=== PATIENT | male | born 1940 | race Caucasian/White ===

== ENCOUNTER → 2018-06-01 | Outpatient (CLI) | payer MEDICARE, OTHER ==
[2018-06-01 10:07] LABS: HCT 38.9 % (39.0-53.0); HGB 12.8 gm/dL (13.0-17.5); MCH 31.1 pg (25.0-35.0); MCV 94.3 fL (80.0-100.0); Mean Platelet Volume 7.1; Platelet Count 228 k/uL (150-450); RBC 4.13 m/uL (4.30-5.90); RDW 13.6 % (11.5-15.5); WBC 5.3 k/uL (3.8-10.6)
[2018-06-01 10:18] LABS: Partial Thromboplastin Time 23.5 sec (22.0-30.0); Prothrombin Time 9.9 sec (9.0-12.0)
[2018-06-01 10:20] LABS: Albumin 4.3 g/dL (3.5-5.0); Calcium 9.5 mg/dL (8.4-10.2); Magnesium 2.1 mg/dL (1.6-2.3); Potassium 4.9 mmol/L (3.5-5.1); Total Bilirubin 0.5 mg/dL (0.2-1.3); Total Protein 7.1 g/dL (6.3-8.2)
[2018-06-01 10:37] LABS: Appearance,Urine Clear (Clear); Bilirubin,Urine Negative (Negative); Blood,Urine Negative (Negative); Color,Urine Yellow; Glucose,Urine (UA) Negative (Negative); Ketones,Urine Negative (Negative); Leukocyte Esterase,Urine Negative (Negative); Nitrite,Urine Negative (Negative); PH, Urine 5.5 (5.0-8.0); Protein,Urine Trace (Negative); Specific Gravity,Urine 1.022 (1.001-1.035); Urobilinogen,Urine <2.0 mg/dL (<2.0)
--- NOTE | 2018-06-01 11:52 | XR ---
EXAMINATION TYPE: XR chest 2V DATE OF EXAM: 06/01/2018 COMPARISON: NONE HISTORY: Preop cardiac surgery. TECHNIQUE: Frontal and lateral views of the chest are obtained. FINDINGS: There is no focal air space opacity, pleural effusion, or pneumothorax seen. The cardiac silhouette size is within normal limits. The osseous structures are intact. Mild to moderate multil evel degenerative changes are seen of the thoracic spine and acromioclavicular joints. IMPRESSION: No acute cardiopulmonary process.
--- NOTE | 2018-06-01 12:27 | P.PN ---
Progress Note - Text Progress Note Date: 06/01/18 5 meter walk completed 06/01 #1 2.75 sec #2 3.06 sec #3 3.24 sec
--- NOTE | 2018-06-01 13:16 | US ---
EXAMINATION TYPE: US carotid duplex BILAT DATE OF EXAM: 06/01/2018 COMPARISON: NONE CLINICAL HISTORY: OPEN HEART PT. HTN- on meds. NO hx of TIA. CAD. High cholesterol- on meds. No p rior surgeries. Precabg EXAM MEASUREMENTS: RIGHT: Peak Systolic Velocity (PSV) cm/sec ----- Right CCA: 72.1 ----- Right ICA: 81.0 ----- Right ECA: 122.1 ICA/CCA ratio: 1.1 RIGHT: End Diastole cm/sec ----- Right CCA: 13.6 ----- Right ICA: 17.6 ----- Right ECA: 12.3 LEFT: Peak Systolic Velocity (PSV) cm/sec ----- Left CCA: 78.7 ----- Left ICA: 63.3 ----- Left ECA: 90.8 ICA/CCA ratio: 0.8 LEFT: End Diastole cm/sec ----- Left CCA: 14.9 ----- Left ICA: 18.0 ----- Left ECA: 0.0 VERTEBRALS (direction of flow): Right Vertebral: Antegrade Left Vertebral: Antegrade Rhythm: Normal Plaque seen in bilateral bulbs. Bilateral wall thickening. NO elevated velocities. No significant stenosis. IMPRESSION: Moderate degree of grayscale atheromatous plaquing with no sonographically evident hemod ynamically significant stenosis within either visualized carotid arterial system. However given the g rayscale findings CTA could be performed of the head and neck to further assess more accurate degree of stenosis at the carotid bulbs.
[2018-06-01 17:40] LABS: Hepatitis A Antibody IgM Non-Reactive (Non-Reactive); Hepatitis B Core IgM Non-Reactive (Non-Reactive)
[2018-06-01 18:31] LABS: Hemoglobin A1C 5.5 % (4.0-6.0)
== END ==
LOC: LABWHC1 08:57
PROVIDERS: ATTEND Thoracic Surgery (Cardiothoracic Vascular Surgery)
DX: Z01.810 Encounter for preprocedural cardiovascular examination (principal); Z01.812 Encounter for preprocedural laboratory examination; I25.10 Atherosclerotic heart disease of native coronary artery without angina pectoris; I67.2 Cerebral atherosclerosis
CPT/HCPCS: 36415; 71046; 80053; 80061; 80074; 81003; 83036; 83735; 84443; 85027; 85610; 85730; 86850; 86900; 86901; 86920; 87070; 87086; 93005; 93880; 93922; 93970; 94150

== ENCOUNTER 2018-06-09 05:41 | Inpatient (IN) | payer MEDICARE, OTHER ==
[~2018-06-09 05:41] MED LIST: ALBUMIN HUMAN 25% 50 ML IV ONE; ALBUMIN HUMAN 5% 500 ML IVPB ONE; ASPIRIN 325 MG TAB PO ONE; ATORVASTATIN 10 MG TAB PO ONE; CALCIUM CHLORIDE 100 MG/ML 10 ML SYRINGE IV ONE; CARDIOPLEGIC SOLN (K+ 16 MEQ/L 1,000 ML with SODIUM BICARB (1 MEQ/ML) 20 ML, LIDOCAINE ... PERFUSION ONE; CHLORHEXIDINE GLUCONATE 15 ML CUP MUCOUS MEM ONE; CLEVIDIPINE BUTYRATE 25 MG in EMPTY BAG 1 BAG IV ONE; HEPARIN SODIUM 1,000 UN/ML (10ML VL) IV ONE; HEPARIN SODIUM,PORCINE 5,000 UNIT in SODIUM CHLORIDE 0.9% 500 ML 500 ML IV ONE; INSULIN REGULAR 100 UNIT in SODIUM CHLORIDE 0.9% 100 ML IV ONE; LACTATED RINGERS 1,000 ML IV ONE; MAGNESIUM SULFATE MG 500 MG/ML IV ONE; MANNITOL 25% 12.5 GM/50 ML VIAL IV ONE; METOPROLOL TARTRATE 12.5 MG TAB PO ONE; NITROGLYCERIN-D5W PMX 25 MG/250 ML BTL IV ONE; NITROGLYCERIN-D5W PMX 50 MG in DEXTROSE/WATER 1 250ML.BAG IV ONE; NOREPINEPHRINE 4 MG in SODIUM CHLORIDE 0.9% 250 ML IV ONE; PAPAVERINE 360 MG in SODIUM CHLORIDE 0.9% 90 ML IV ONE; PHENYLEPHRINE 40 MG in SODIUM CHLORIDE 0.9% 250 ML IV ONE; PHENYLEPHRINE-0.9% NACL SYG 1 MG/10 ML SYRINGE IV ONE; PROPOFOL 1,000 MG/100 ML VIAL IV ONE; PROTAMINE SULFATE 10 MG/ML 25 ML VIAL IV ONE; PROTAMINE SULFATE 250 MG in EMPTY BAG 1 BAG IV ONE; SODIUM BICARB 8.4% 50 ML SYR (1 MEQ/ML) IV ONE; SODIUM CHLORIDE 0.9% 1,000 ML IV ONE; TRANEXAMIC ACID 2,000 MG in SODIUM CHLORIDE 0.9% 180 ML IV ONE; ceFAZolin 1,000 MG in SODIUM CHLORIDE 0.9% IRRIGATIO 1,000 ML IRRIGATION ONE; ceFAZolin 2,000 MG in SODIUM CHLORIDE 0.9% 30 ML IVPB ONE; ceFAZolin IN SWFI 2 GM/20 ML SYRINGE IVP ONE
[2018-06-09] MEDS ORDERED: MAGNESIUM SULFATE 4 MEQ/ML 10ML VIAL ONE (08:29)
[2018-06-09] MEDS ORDERED: VECURONIUM 10 MG VIAL IV ONE (08:29)
[2018-06-09] MEDS ORDERED: SODIUM CHLORIDE 0.9% IRRIG 1,000 ML BTL IRRIGATION ONE (08:29)
[2018-06-09] MEDS ORDERED: PROTAMINE SULFATE 10 MG/ML 25 ML VIAL IV ONE (08:29)
[2018-06-09] MEDS ORDERED: PHENYLEPHRINE-0.9% NACL SYG 1 MG/10 ML SYRINGE ONE (08:29)
[2018-06-09] MEDS ORDERED: ALBUMIN HUMAN 5% 500 ML VIAL IVPB ONE (08:29)
[2018-06-09] MEDS ORDERED: TRANEXAMIC ACID 1,000 MG/10 ML VIAL ONE (08:29)
[2018-06-09] MEDS ORDERED: PROPOFOL 10 MG/ML 20 ML VIAL IV ONE (08:29)
[2018-06-09] MEDS ORDERED: GLYCOPYRROLATE 0.2 MG/ML 2 ML VIAL ONE (08:29)
[2018-06-09] MEDS ORDERED: fentaNYL (PF) 50 MCG/ML 50 ML VIAL ONE (08:29)
[2018-06-09] MEDS ORDERED: fentaNYL (PF) 50 MCG/ML 2 ML AMP ONE (08:29)
[2018-06-09] MEDS ORDERED: MIDAZOLAM 2 MG/2 ML VIAL ONE (08:29)
[2018-06-09] MEDS ORDERED: LIDOCAINE 2% SYG (PF) 100 MG/5 ML ONE (08:29)
[2018-06-09] MEDS ORDERED: HEPARIN SODIUM,PORCINE 10,000 UNIT/ML 1 ML VIAL ONE (08:29)
[2018-06-09] MEDS ORDERED: SODIUM CHLORIDE 0.9% 250 ML BAG ONE (08:29)
[2018-06-09 08:57] LABS: ABG Base Excess 0.7 mmol/L; ABG HCO3 25 mmol/L (21-25); ABG Oxygen Saturation 99.8 % (94-97); ABG PCO2 40 mmHg (35-45); ABG PH 7.41 (7.35-7.45); ABG Potassium Whole Blood 4.3 mmol/L (3.4-4.5); ABG Sodium Whole Blood 142 mmol/L (135-146); ABG TCO2 27 mmol/L (19-24)
[2018-06-09 09:59] LABS: ABG HCO3 25 mmol/L (21-25); ABG Oxygen Saturation 99.9 % (94-97); ABG PCO2 46 mmHg (35-45); ABG PH 7.34 (7.35-7.45); ABG PO2 312 mmHg (83-108); ABG Potassium Whole Blood 4.3 mmol/L (3.4-4.5); ABG Sodium Whole Blood 143 mmol/L (135-146); ABG TCO2 27 mmol/L (19-24)
[2018-06-09 10:46] LABS: ABG Base Excess -1.2 mmol/L; ABG HCO3 24 mmol/L (21-25); ABG Oxygen Saturation 99.8 % (94-97); ABG PCO2 40 mmHg (35-45); ABG PH 7.38 (7.35-7.45); ABG PO2 328 mmHg (83-108); ABG Potassium Whole Blood 4.2 mmol/L (3.4-4.5); ABG Sodium Whole Blood 142 mmol/L (135-146); ABG TCO2 25 mmol/L (19-24)
[2018-06-09 11:27] LABS: ABG Base Excess -1.9 mmol/L; ABG HCO3 23 mmol/L (21-25); ABG Oxygen Saturation 99.8 % (94-97); ABG PCO2 39 mmHg (35-45); ABG PH 7.38 (7.35-7.45); ABG PO2 318 mmHg (83-108); ABG Potassium Whole Blood 4.1 mmol/L (3.4-4.5); ABG Sodium Whole Blood 142 mmol/L (135-146); ABG TCO2 24 mmol/L (19-24)
[2018-06-09 11:39] LABS: ABG PO2 >420 mmHg (83-108)
[2018-06-09] MEDS ORDERED: Phosphorus Replacement Protoco 1 EACH MISC MISCELLANE PRN (11:49)
[2018-06-09] MEDS ORDERED: ONDANSETRON 4 MG/2 ML VIAL IVP PRN (11:49)
[2018-06-09] MEDS ORDERED: CALCIUM CHLORIDE 1,000 MG in SODIUM CHLORIDE 0.9% 100 ML IV PRN (11:49)
[2018-06-09] MEDS ORDERED: Magnesium Replacement Protocol 1 EACH MISC MISCELLANE PRN (11:49)
[2018-06-09] MEDS ORDERED: AMIODARONE 450 MG in DEXTROSE 5% IN WATER 250 ML IV PRN ×2 (11:49)
[2018-06-09] MEDS ORDERED: IPRATROPIUM-ALBUTEROL 3 ML NEB INHALATION PRN (11:49)
[2018-06-09] MEDS ORDERED: DEXTROSE 5% IN WATER 100 ML with AMIODARONE 150 MG IV PRN (11:49)
[2018-06-09] MEDS ORDERED: INSULIN REGULAR 100 UNIT in SODIUM CHLORIDE 0.9% 100 ML IV SCH (11:49)
[2018-06-09] MEDS ORDERED: ALBUMIN HUMAN 5% 250 ML in EMPTY BAG 1 BAG IVPB PRN (11:49)
[2018-06-09] MEDS ORDERED: BENZOCAINE/MENTHOL LOZENG 1 EACH LOZENGE MUCOUS MEM PRN (11:49)
[2018-06-09] MEDS ORDERED: METOCLOPRAMIDE 5 MG/ML 2 ML VIAL IVP PRN (11:49)
[2018-06-09] MEDS ORDERED: Potassium Replacement Protocol 1 EACH MISC MISCELLANE PRN (11:49)
[2018-06-09] MEDS: ceFAZolin IN SWFI 2 GM/20 ML SYRINGE IVP SCH (11:50)
[2018-06-09] MEDS: IPRATROPIUM-ALBUTEROL 3 ML NEB INHALATION SCH ×2 (12:30→15:50)
--- NOTE | 2018-06-09 12:44 | P.OP ---
Date of Procedure: 06/09/18 Preoperative Diagnosis: Coronary artery disease Postoperative Diagnosis: Same Procedure(s) Performed: Off pump coronary artery bypass grafting 3 with JOLLY to LAD and saphenous vein grafts to first obtuse marginal and diagonal branches with endovascular vein harvest and CHARBEL by anesthesia. Anesthesia: KRISTYNA Surgeon: Blas Griffin [employer] #1: Junior Cavanaugh [employer] #2: Layo Colbert Estimated Blood Loss (ml): 300 IV fluids (ml): 3,000 Urine output (ml): 300 Pathology: none sent Condition: stable Disposition: ICU Indications for Procedure: 78-year-old male with minimal symptomatology but severe coronary ischemia by stress found to have severe disease in left anterior descending as well as first obtuse marginal branch and a codominant right coronary artery. Elective CABG was scheduled. Operative Findings: CHARBEL showed normal ventricular function with just minimal mitral regurgitation, central, no aortic valvular disease. Saphenous vein was of good quality. Coronary targets were as described below. The right coronary artery lead to a very small posterior descending branch which was nongraftable. The distal circumflex coronary artery was a large vessel which did subserve the same posterior descending region, codominant. This did not have significant disease. Case proceeded uneventfully. Description of Procedure: Patient was brought to the operating room, placed supine on the operating table , anesthetized and intubated. Sunray-Melody catheter been placed in the preop holding area along with arterial line. After intubation a Moseley and CHARBEL probe were placed. The anterior torso and lower extremities were sterilely prepped and draped in standard fashion. Saphenous vein was harvested from the left thigh greater saphenous vein was of good quality. Simultaneously, midline sternotomy was performed and left hemisternum retracted upwards. Internal mammary artery was harvested on a vascularized pedicle from beneath the left chest wall. It was an excellent conduit. The left pleural space was drained with 32-Honduran chest tube. Standard sternal retractor was placed in midline pericardiotomy performed. The heart was exposed pericardial sutures. Patient was systemically heparinized and a CTs maintained above 250 during grafting. The left internal mammary artery to LAD graft was performed first. The LAD was stabilized and grafted in its midportion. The proximal LAD was heavily calcified and nongraftable. The LAD was grafted beyond palpable calcification. Here was a 1.75-2 mm vessel. It was opened and blood flow control with a 2 mm flow through. End to side anastomosis between the internal mammary artery and the LAD was performed with running 8-0 Prolene suture. On completion of the anastomosis, the flow through was removed effectively probing the proximal distal portion of the anastomosis. Suture was tied with good result and hemostasis. Inflow was open. Graft lay well and the fluid-filled well that was more than adequate length. EDDIE pedicle was tacked surrounding epicardium with 6-0 silk. Portion of saphenous vein was cut to appropriate length and loaded on a passport anastomotic connector. It was connected to the ascending aorta without a fact just to the left of midline in the midportion of the ascending aorta. It was brought beneath the JOLLY. Next the diagonal coronary artery was stabilized. It was a diffusely diseased and calcific vessel. It was grafted at a soft spot proximal just prior to its bifurcation. Here was a 1.75 mm vessel that easily accepted a 1.5 mm flow through proximally and distally. Saphenous vein was anastomosed in end-to-side fashion with running 7- 0 Prolene suture. On completion the anastomosis the flow through was removed effectively probing the proximal distal portion of the anastomosis. The bulldog clamp was removed and the inflow opened. The graft lay well. Next the high obtuse marginal coronary artery was exposed and stabilized. It was a 1.5- 1.75 mm vessel. It was opened beyond palpable disease and blood flow control the 1.5 mm flow through. Saphenous vein was anastomosed in an inside fashion with running 7-0 Prolene suture. Completion anastomosis flow through was removed effectively probing the proximal distal portion anastomosis. Suture was tied with good result and hemostasis. Good backbleeding was noted into the vein graft to the first valve. This was brought beneath the JOLLY to the aorta. Bulldog clamp was placed on the diagonal vein graft just distal to the passport anastomotic connector. Second bullet was placed on both veins more distally to prevent control backbleeding. Vein graft to the diagonal was opened longitudinally and proximal anastomosis of the first OM graft was taken off this vein graft using running 7-0 Prolene suture. On completion anastomosis it was de-aired by backbleeding and the inflow opened. We now explored the distal PDA portion of the right coronary artery and deemed to be too small to graft. Heart was lowered into anatomic position. Protamine was infused to reverse the heparin. Good hemostasis was obtained throughout. Chest was irrigated with antibiotic solution. Mediastinum was drained with a 36 -Honduran chest tube. Sternum was closed with 8 sternal wires. Fascia was closed with 0 Ethibond. Subcutaneous and subcuticular layers with layers of Vicryl suture. Skin glue and dry sterile dressings were applied. The patient was transferred to the ICU in stable condition.
[2018-06-09 12:51] LABS: Glucose,Whole Blood 107 mg/dL (75-99)
[2018-06-09] MEDS: LACTATED RINGERS 1,000 ML IV SCH (13:01)
[2018-06-09] MEDS: ACETAMINOPHEN IV (For NPO) 1,000 MG in EMPTY BAG 1 BAG IVPB SCH ×2 (13:07→18:12)
[2018-06-09 13:15] LABS: ABG Base Excess -1.3 mmol/L; ABG HCO3 24 mmol/L (21-25); ABG PCO2 44 mmHg (35-45); ABG PH 7.35 (7.35-7.45); ABG PO2 >400 mmHg (83-108); ABG TCO2 26 mmol/L (19-24)
[2018-06-09] MEDS ORDERED: PROPOFOL 1,000 MG in EMPTY BAG 1 BAG IV SCH (13:15)
[2018-06-09] MEDS ORDERED: NITROGLYCERIN-D5W PMX 50 MG in DEXTROSE/WATER 1 250ML.BAG IV SCH (13:15)
--- NOTE | 2018-06-09 13:31 | XR ---
EXAMINATION TYPE: XR chest 1V portable DATE OF EXAM: 06/09/2018 COMPARISON: 06/01/2018 HISTORY: Post open heart surgery TECHNIQUE: Single frontal view of the chest is obtained. FINDINGS: ET tube approximately 2.3 cm above sirisha. NG tube appears in with the tip at the level th e GE junction and could be advanced. Mediastinal drain and left-sided chest tube noted. Postsurgical changes identified. No sizable pneumothorax. Subsegmental linear changes at the left lung base most typical postoperative atelectasis. Arthropathy of the shoulders and degenerative change of the spine. IMPRESSION: 1. Postsurgical change with left basilar postoperative atelectasis
--- NOTE | 2018-06-09 13:34 | CONS ---
CONSULTATION Mr. Denton is an 78-year-old male who underwent coronary artery bypass grafting today. He follows on a regular basis with Dr. Cohen and had an abnormal myocardial perfusion imaging. Subsequently underwent cardiac catheterization, was found to have critical stenosis involving the LAD as well as the obtuse marginal branch. Today, he underwent a JOLLY to LAD, saphenous vein graft to the obtuse marginal branch and to diagonal branch. He is intubated, sedated. Hemodynamically stable on no pressors. He has been paced and the underlying rhythm is sinus bradycardia. Patient's past history is obtained from the record. He has a history of hypertension, hyperlipidemia. He has a history of osteoarthritis and was being evaluated to undergo knee surgery. He is active physically at his baseline reviewing the records. His left ventricular systolic function preoperatively was normal. No review of symptoms is available at this point. MEDICATIONS: His medications prior to the admission included diltiazem 240 mg daily, Lipitor 20 mg daily, hydralazine 10 mg 3 times a day, losartan 100 mg daily and aspirin once a day. PHYSICAL EXAMINATION: He is an 78-year-old male, intubated, sedated. Blood pressure running in the 160s with the heart rate paced in the 60s. HEAD: Normocephalic. EYES: Sclerae anicteric. NECK: No bruit. LUNGS: Clear to auscultation anteriorly. HEART: Regular rate and rhythm. S1, S2. No S3. No rub or gallop appreciated. ABDOMEN: Soft, hypoactive bowel sounds. No organomegaly. EXTREMITIES: Aquiles wrapping in place. IMPRESSION: 1. Status post coronary artery bypass grafting with JOLLY plus two. 2. Hypertension. 3. Hyperlipidemia. 4. Osteoarthritis. RECOMMENDATION: We will continue the routine postoperative care. Hopefully will be able to wean and extubate soon and then we will re-initiate treatment with the angiotensin receptor blane, the statin and the beta blane. Depending on his progress, further recommendation will be made. Thank you for this consult. We will follow with you. MMODL / IJN: [id number] /
[2018-06-09 13:56] LABS: Ionized Calcium 4.7 mg/dL (4.5-5.3)
[2018-06-09 13:57] LABS: INR 1.3 (<1.2); Partial Thromboplastin Time 29.5 sec (22.0-30.0); Prothrombin Time 12.1 sec (9.0-12.0)
--- NOTE | 2018-06-09 14:04 | P.CNPUL ---
History of Present Illness Consult date: 06/09/18 Reason for consult: other Chief complaint: Routine mechanical ventilation management, status post open- heart surgery History of present illness: Pulmonary consultation dated 06/09/2018 78-year-old male with history of CAD, hypertension, hyperlipidemia, and DJD. The patient was recently evaluated for shortness of breath particularly with exercise. He apparently was being evaluated for possible hip replacement because of arthritis. For that reason he was seen by cardiology catheterization was done and showed severe three-vessel coronary artery disease. Today, he went to the OR and had a three-vessel bypass. The surgery was done by Dr. Blas Griffin. He had a JOLLY to LAD bypass, saphenous vein graft bypasses to the PDA and diagonal coronary artery. Currently, the patient just arrived back in the ICU. He is on the SIMV mode of ventilation with a rate of 12, tidal volume 500, FiO2 100%, and PEEP of 5. On those settings, his arterial blood gas showed a PaO2 greater than 400, a PaCO2 of 44 and a pH of 7.35. We added duo nebs every 4 [id number]. He is currently also on lactated Ringer's at 50 mL an hour, propofol at 15 mics per kilogram per minute , Cleveprex at 6 mg an hour and nitroglycerin at 5 mcg/m. Currently, chest x- ray is pending. Review of Systems ROS unobtainable: due to endotracheal tube Past Medical History Past Medical History: Cancer, GERD/Reflux, Hypertension Additional Past Medical History / Comment(s): HX PROSTATE CANCER WITH SURGERY ( 2006), NON ESSENTIAL LEFT HAND TREMOR., OCCASIONAL GERD, ARTHRITIS LEFT KNEE, STATES TAKING IRON FOR LOW HCT., BACK PAIN WHEN HE LIES FLAT., HX OF RECURRENT DENTAL IMPLANT INFECTION. History of Any Multi-Drug Resistant Organisms: None Reported Past Surgical History: Heart Catheterization, Joint Replacement, Prostate Surgery Additional Past Surgical History / Comment(s): RUPTURED RIGHT BICEP., TOTAL RIGHT HIP Past Anesthesia/Blood Transfusion Reactions: No Reported Reaction Past Psychological History: No Psychological Hx Reported Smoking Status: Former smoker Past Alcohol Use History: Daily Additional Past Alcohol Use History / Comment(s): HX OF SMOKING CIGARS, QUIT 55 YEARS AGO. DRINKS 1-2 GLASSES OF WINE DAILY. Past Drug Use History: None Reported - Past Family History Brother(s) Family Medical History: Cancer Additional Family Medical History / Comment(s): PROSTATE CANCER Medications and Allergies Home Medications Medication Instructions Recorded Confirmed Type Alpha Lipoic Acid 100 mg PO DAILY 05/24/18 06/09/18 History Ascorbic Acid [Vitamin C] 500 mg PO DAILY 05/24/18 06/09/18 History Aspirin 325 mg PO DAILY 05/24/18 06/09/18 History Atorvastatin [Lipitor] 20 mg PO HS 05/24/18 06/09/18 History Calcium Carbonate [Calcium] 600 mg PO DAILY 05/24/18 06/09/18 History Cholecalciferol [Vitamin D3] 5,000 unit PO DAILY 05/24/18 06/09/18 History Diltiazem Cd [Cardizem Cd] 240 mg PO DAILY 05/24/18 06/09/18 History Folic Acid 0.4 mg PO DAILY 05/24/18 06/09/18 History Ginkgo Biloba [place] Extract [Ginkgo 60 mg PO DAILY 05/24/18 06/09/18 History Biloba] Iron 100 mg PO DAILY 05/24/18 06/09/18 History Losartan Potassium [Cozaar] 100 mg PO DAILY 05/24/18 06/09/18 History Multivitamins, Thera [Multivitamin 1 tab PO DAILY 05/24/18 06/09/18 History (formulary)] [place]-3/Dha/Epa/Fish Oil [Fish Oil 1 cap PO DAILY 05/24/18 06/09/18 History 500 mg Softgel] Omeprazole 20 mg PO DAILY PRN 05/24/18 06/09/18 History Ubidecarenone [Co Q-10] 100 mg PO DAILY 05/24/18 06/09/18 History Vitamin E (Dl,Tocopheryl Acet) 400 unit PO DAILY 05/24/18 06/09/18 History [Vitamin E] Zinc 50 mg PO DAILY 05/24/18 06/09/18 History hydrALAZINE HCL [Apresoline] 10 mg PO TID 05/24/18 06/09/18 History Allergies Allergy/AdvReac Type Severity Reaction Status Date / Time No Known Allergies Allergy Verified 06/09/18 13:32 Physical Exam Osteopathic Statement: *. No significant issues noted on an osteopathic structural exam other than those noted in the History and Physical/Consult. Vitals: Vital Signs Temp Pulse Pulse Resp BP BP Pulse Ox 06/09/18 13:30 80 12 100 06/09/18 13:15 80 10 L 100 06/09/18 13:00 80 12 100 06/09/18 12:45 80 12 100 06/09/18 12:36 49 L 06/09/18 11:49 100 06/09/18 06:30 98.2 F 06/09/18 06:25 99.2 F 63 16 179/81 186/81 97 Intake and Output 06/08/18 06/09/18 06/09/18 22:59 06:59 14:59 Intake Total 153 Output Total 745 Balance -592 Intake: IV 153 ACETAMINOPHEN IV (For NPO 100 ) 1,000 mg In Empty Bag 1 bag @ 400 mls/hr IVPB Q6HR [facility] Rx#:[id number] Lactated Ringers 1,000 ml 50 @ 50 mls/hr IV .Q20H [facility] Rx#:[id number] Output: Chest Tube Drainage 45 Left Pleural/Mediastinal 45 Urine 400 Estimated Blood Loss 300 Other: Weight 74.9 kg ABP, PAP, CO, CI - Last 8 Hours Arterial Blood Pressure 141/69 Arterial Blood Pressure 134/69 Arterial Blood Pressure 123/67 Arterial Blood Pressure 118/66 Pulmonary Artery Pressure 29/19 Pulmonary Artery Pressure 26/17 Pulmonary Artery Pressure 27/17 Pulmonary Artery Pressure 30/18 Cardiac Output 4.9 Cardiac Output 4.4 Cardiac Output 4.1 Cardiac Output 4.1 Cardiac Index 2.6 Cardiac Index 2.4 Cardiac Index 2.2 No acute distress, sedated, orally placed endotracheal tube and NG tube. HEENT examination is grossly unremarkable. Mucous membranes are moist. Neck supple. Full range of motion. No adenopathy thyromegaly or neck vein distention. Cardiovascular examination reveals regular rhythm rate. S1-S2 normal. No S3 or S4. No discernible murmur noted. Lungs reveal mostly clear breath sounds. Her sounds are equal bilaterally. A few scattered mild rhonchi are noted. No wheezes or crackles. Abdomen soft without bowel sounds. No masses appreciated. Extremities are intact. No cyanosis clubbing or edema. Skin is without rash or lesion. Neurologic examination could not be assessed as the patient is currently sedated. Results - Laboratory Findings ABG ABG pH 7.35 (7.35-7.45) 06/09/18 13:07 ABG pCO2 44 mmHg (35-45) 06/09/18 13:07 ABG pO2 >400 mmHg (83-108) H 06/09/18 13:07 ABG O2 Saturation 100.0 % (94-97) H 06/09/18 13:07 Abnormal lab findings: Abnormal Labs 06/01/18 06/09/18 06/09/18 09:25 08:54 09:57 ABG pH 7.34 L ABG pCO2 46 H ABG pO2 >420 H 312 H ABG Total CO2 27 H 27 H ABG O2 Saturation 99.8 H 99.9 H ABG Hematocrit 33 L ABG Ionized Calcium ABG Glucose 123 H Hemoglobin 11.3 L 10.8 L POC Glucose (mg/dL) Arterial Blood Glucose 123 H Crossmatch See Detail 06/09/18 06/09/18 06/09/18 10:44 11:25 12:40 ABG pH ABG pCO2 ABG pO2 328 H 318 H ABG Total CO2 25 H ABG O2 Saturation 99.8 H 99.8 H ABG Hematocrit 30 L 28 L ABG Ionized Calcium 4.4 L ABG Glucose 109 H 107 H Hemoglobin 9.6 L 9.0 L POC Glucose (mg/dL) 107 H Arterial Blood Glucose 109 H 107 H Crossmatch 06/09/18 13:07 ABG pH ABG pCO2 ABG pO2 >400 H ABG Total CO2 26 H ABG O2 Saturation 100.0 H ABG Hematocrit ABG Ionized Calcium ABG Glucose Hemoglobin POC Glucose (mg/dL) Arterial Blood Glucose Crossmatch - Diagnostic Findings Additional studies: Chest x-ray, labs and medications will all be reviewed. Assessment and Plan Assessment: Assessment Postop day # 0, status post three-vessel bypass grafting, with JOLLY to LAD, SVG to PDA, and SVG to diagonal. Routine postoperative ventilator management History of CAD History of DJD History of hypertension History of hyperlipidemia History of vitamin D deficiency Plan: Plan dated 06/09/2018 The patient's FiO2 was dropped down from 100% down to 50%. We added duo nebs every 4 [id number]. The patient's chest x-ray will be evaluated once it is ready. Hopefully, we can proceed to rapid extubation protocol. The patient appears to be relatively stable and healthy for an 78-year-old male. He's currently on lactated Ringer's at 50 mL an hour, propofol at 15 mcg/kg/m, Cleveprex is 6 mg per hour and nitroglycerin at 5 mcg/m. We will continue to follow. No additional recommendations are made. Prognosis is thought to be generally good. Critical care time 33 minutes Time with Patient: Greater than 30
[2018-06-09 14:16] LABS: Glucose,Whole Blood 94 mg/dL (75-99)
[2018-06-09 14:19] LABS: Basophils % (A) 0 %; Eosinophils # (A) 0.2 k/uL (0-0.7); Eosinophils % (A) 3 %; HCT 26.3 % (39.0-53.0); Lymphocytes % (A) 16 %; MCH 32.2 pg (25.0-35.0); MCHC 33.9 g/dL (31.0-37.0); MCV 94.9 fL (80.0-100.0); Mean Platelet Volume 7.2; Monocytes # (A) 0.4 k/uL (0-1.0); Monocytes % (A) 6 %; Neutrophils # (A) 4.4 k/uL (1.3-7.7); Neutrophils % (A) 73 %; Platelet Count 145 k/uL (150-450); RBC 2.77 m/uL (4.30-5.90); RDW 13.4 % (11.5-15.5)
[2018-06-09 14:20] LABS: Albumin 3.5 g/dL (3.5-5.0); Calcium 8.1 mg/dL (8.4-10.2); Magnesium 2.2 mg/dL (1.6-2.3); Potassium 4.2 mmol/L (3.5-5.1); Total Bilirubin 0.4 mg/dL (0.2-1.3); Total Protein 5.6 g/dL (6.3-8.2)
[2018-06-09 14:25] LABS: HGB 8.9 gm/dL (13.0-17.5)
[2018-06-09] MEDS: CLEVIDIPINE BUTYRATE 25 MG in EMPTY BAG 1 BAG IV SCH ×3 (14:26→22:36)
[2018-06-09 15:26] LABS: Glucose,Whole Blood 105 mg/dL (75-99)
[2018-06-09 15:28] LABS: ABG Base Excess -1.8 mmol/L; ABG HCO3 24 mmol/L (21-25); ABG Oxygen Saturation 97.7 % (94-97); ABG PCO2 47 mmHg (35-45); ABG PH 7.32 (7.35-7.45); ABG PO2 106 mmHg (83-108); ABG TCO2 26 mmol/L (19-24)
--- NOTE | 2018-06-09 15:51 | P.CONS ---
History of Present Illness - Reason for Consult Consult date: 06/09/18 hypertensive management Requesting physician: Blas Griffin - Chief Complaint chest pain - History of Present Illness Patient is an 78-year-old male past medical history of hypertension, dyslipidemia, arthritis, and GERD who presented for elective bypass surgery. On 06/09 he underwent a triple vessel bypass with JOLLY to the LAD, SVG to diagonal, SVG to OM1. He tolerated the procedure well. He is slightly hypothermic and returned to the ICU. Currently being maintained on multiple IV drips. Patient seen and examined at bedside. Still sedated on propofol. Opens eyes to commands. All information obtained from thorough medical record review including outpatient history and physical by Dr. Griffin, pulmonary function tests, and recent imaging studies. Review of Systems Unable to obtain patient is still intubated ROS unobtainable: due to endotracheal tube Past Medical History Past Medical History: Cancer, GERD/Reflux, Hypertension Additional Past Medical History / Comment(s): HX PROSTATE CANCER WITH SURGERY ( 2006), NON ESSENTIAL LEFT HAND TREMOR., OCCASIONAL GERD, ARTHRITIS LEFT KNEE, STATES TAKING IRON FOR LOW HCT., BACK PAIN WHEN HE LIES FLAT., HX OF RECURRENT DENTAL IMPLANT INFECTION. History of Any Multi-Drug Resistant Organisms: None Reported Past Surgical History: Heart Catheterization, Joint Replacement, Prostate Surgery Additional Past Surgical History / Comment(s): RUPTURED RIGHT BICEP., TOTAL RIGHT HIP Past Anesthesia/Blood Transfusion Reactions: No Reported Reaction Past Psychological History: No Psychological Hx Reported Smoking Status: Former smoker Past Alcohol Use History: Daily Additional Past Alcohol Use History / Comment(s): HX OF SMOKING CIGARS, QUIT 55 YEARS AGO. DRINKS 1-2 GLASSES OF WINE DAILY. Past Drug Use History: None Reported - Past Family History Brother(s) Family Medical History: Cancer Additional Family Medical History / Comment(s): PROSTATE CANCER Medications and Allergies Home Medications Medication Instructions Recorded Confirmed Type Alpha Lipoic Acid 100 mg PO DAILY 05/24/18 06/09/18 History Ascorbic Acid [Vitamin C] 500 mg PO DAILY 05/24/18 06/09/18 History Aspirin 325 mg PO DAILY 05/24/18 06/09/18 History Atorvastatin [Lipitor] 20 mg PO HS 05/24/18 06/09/18 History Calcium Carbonate [Calcium] 600 mg PO DAILY 05/24/18 06/09/18 History Cholecalciferol [Vitamin D3] 5,000 unit PO DAILY 05/24/18 06/09/18 History Diltiazem Cd [Cardizem Cd] 240 mg PO DAILY 05/24/18 06/09/18 History Folic Acid 0.4 mg PO DAILY 05/24/18 06/09/18 History Ginkgo Biloba [place] Extract [Ginkgo 60 mg PO DAILY 05/24/18 06/09/18 History Biloba] Iron 100 mg PO DAILY 05/24/18 06/09/18 History Losartan Potassium [Cozaar] 100 mg PO DAILY 05/24/18 06/09/18 History Multivitamins, Thera [Multivitamin 1 tab PO DAILY 05/24/18 06/09/18 History (formulary)] [place]-3/Dha/Epa/Fish Oil [Fish Oil 1 cap PO DAILY 05/24/18 06/09/18 History 500 mg Softgel] Omeprazole 20 mg PO DAILY PRN 05/24/18 06/09/18 History Ubidecarenone [Co Q-10] 100 mg PO DAILY 05/24/18 06/09/18 History Vitamin E (Dl,Tocopheryl Acet) 400 unit PO DAILY 05/24/18 06/09/18 History [Vitamin E] Zinc 50 mg PO DAILY 05/24/18 06/09/18 History hydrALAZINE HCL [Apresoline] 10 mg PO TID 05/24/18 06/09/18 History Allergies Allergy/AdvReac Type Severity Reaction Status Date / Time No Known Allergies Allergy Verified 06/09/18 13:32 Physical Exam Osteopathic Statement: *. No significant issues noted on an osteopathic structural exam other than those noted in the History and Physical/Consult. Vitals: Vital Signs Temp Pulse Pulse Resp BP BP Pulse Ox 06/09/18 15:15 66 15 99 06/09/18 15:00 69 10 L 99 06/09/18 14:45 70 26 H 99 06/09/18 14:30 70 13 99 06/09/18 14:15 97.3 F L 69 22 100 06/09/18 14:00 70 12 100 06/09/18 13:45 69 12 100 06/09/18 13:30 80 12 100 06/09/18 13:15 80 10 L 100 06/09/18 13:00 80 12 100 06/09/18 12:45 80 12 100 06/09/18 12:36 49 L 06/09/18 11:49 100 06/09/18 06:30 98.2 F 06/09/18 06:25 99.2 F 63 16 179/81 186/81 97 Intake and Output 06/09/18 06/09/18 06/09/18 06:59 14:59 22:59 Intake Total 203 23.5 Output Total 810 185 Balance -607 -161.5 Intake: IV 203 20 ACETAMINOPHEN IV (For NPO 100 ) 1,000 mg In Empty Bag 1 bag @ 400 mls/hr IVPB Q6HR [facility] Rx#:[id number] Lactated Ringers 1,000 ml 100 20 @ 50 mls/hr IV .Q20H [facility] Rx#:[id number] Intake, IV Titration 3.5 Amount Clevidipine Butyrate 25 3.5 mg In Empty Bag 1 bag @ 1 MG/HR 2 mls/hr IV .Q24H [facility] Rx#:[id number] Output: Chest Tube Drainage 75 35 Left Pleural/Mediastinal 75 35 Urine 435 150 Estimated Blood Loss 300 Other: Weight 74.9 kg ABP, PAP, CO, CI - Last 8 Hours Arterial Blood Pressure 135/58 Arterial Blood Pressure 142/60 Arterial Blood Pressure 137/60 Arterial Blood Pressure 132/57 Arterial Blood Pressure 143/64 Arterial Blood Pressure 120/54 Arterial Blood Pressure 145/67 Arterial Blood Pressure 141/69 Arterial Blood Pressure 134/69 Arterial Blood Pressure 123/67 Arterial Blood Pressure 118/66 Pulmonary Artery Pressure 39/23 Pulmonary Artery Pressure 38/22 Pulmonary Artery Pressure 33/20 Pulmonary Artery Pressure 31/19 Pulmonary Artery Pressure 31/19 Pulmonary Artery Pressure 30/18 Pulmonary Artery Pressure 30/18 Pulmonary Artery Pressure 29/19 Pulmonary Artery Pressure 26/17 Pulmonary Artery Pressure 27/17 Pulmonary Artery Pressure 30/18 Cardiac Output 6 Cardiac Output 6 Cardiac Output 6 Cardiac Output 6 Cardiac Output 6.0 Cardiac Output 4.9 Cardiac Output 4.9 Cardiac Output 4.9 Cardiac Output 4.4 Cardiac Output 4.1 Cardiac Output 4.1 Cardiac Index 3.2 Cardiac Index 2.6 Cardiac Index 2.6 Cardiac Index 2.4 Cardiac Index 2.2 General: non toxic, mild distress, appears at stated age, normal weight, intubated Derm: dressing in place over lower extremity, no unusual rashes/lesions no unusual ecchymoses, warm, dry Head: atraumatic, normocephalic, symmetric Eyes: EOMI, open eyes when you say his name, anicteric sclera, pupils equal round reactive to light ENT: Nose and ears atraumatic, no thrush Neck: No thyromegaly, no cervical lymphadenopathy, trachea midline, supple Mouth: no lip lesion, mucus membranes moist Cardiovascular: S1S2 reg-paced, no murmur, positive posterior tibial pulse bilateral, no edema, capillary refill less than 2 seconds, medistinal and chest tubes in place Lungs: course bs bilateral, no rhonchi, no rales , no accessory muscle use, on vent Abdominal: soft, nontender to palpation, no guarding, no appreciable organomegaly, normal bowel sounds Ext: no gross muscle atrophy, no contractures, Neuro: Moving hands spontaneously Psych: sedated on propofol Results CBC & Chem 7: 06/09/18 12:40 06/09/18 12:40 Labs: Abnormal Lab Results - Last 24 Hours (Table) 06/01/18 06/09/18 06/09/18 Range/Units 09:25 08:54 09:57 RBC (4.30-5.90) m/uL Hgb (13.0-17.5) gm/dL Hct (39.0-53.0) % Plt Count (150-450) k/uL PT (9.0-12.0) sec INR (<1.2) ABG pH 7.34 L (7.35-7.45) ABG pCO2 46 H (35-45) mmHg ABG pO2 >420 H 312 H (83-108) mmHg ABG Total CO2 27 H 27 H (19-24) mmol/L ABG O2 Saturation 99.8 H 99.9 H (94-97) % ABG Hematocrit 33 L (34.0-46.0) % ABG Ionized Calcium (4.5-5.3) mg/dL ABG Glucose 123 H (75-99) mg/dL Hemoglobin 11.3 L 10.8 L (13.0-17.5) gm/dL Chloride (98-107) mmol/L Glucose (74-99) mg/dL POC Glucose (mg/dL) (75-99) mg/dL Calcium (8.4-10.2) mg/dL Alkaline Phosphatase (38-126) U/L Total Protein (6.3-8.2) g/dL Arterial Blood Glucose 123 H (75-99) mg/dL Crossmatch See Detail 06/09/18 06/09/18 06/09/18 Range/Units 10:44 11:25 12:40 RBC (4.30-5.90) m/uL Hgb (13.0-17.5) gm/dL Hct (39.0-53.0) % Plt Count (150-450) k/uL PT (9.0-12.0) sec INR (<1.2) ABG pH (7.35-7.45) ABG pCO2 (35-45) mmHg ABG pO2 328 H 318 H (83-108) mmHg ABG Total CO2 25 H (19-24) mmol/L ABG O2 Saturation 99.8 H 99.8 H (94-97) % ABG Hematocrit 30 L 28 L (34.0-46.0) % ABG Ionized Calcium 4.4 L (4.5-5.3) mg/dL ABG Glucose 109 H 107 H (75-99) mg/dL Hemoglobin 9.6 L 9.0 L (13.0-17.5) gm/dL Chloride (98-107) mmol/L Glucose (74-99) mg/dL POC Glucose (mg/dL) 107 H (75-99) mg/dL Calcium (8.4-10.2) mg/dL Alkaline Phosphatase (38-126) U/L Total Protein (6.3-8.2) g/dL Arterial Blood Glucose 109 H 107 H (75-99) mg/dL Crossmatch 06/09/18 06/09/18 06/09/18 Range/Units 12:40 12:40 12:40 RBC 2.77 L (4.30-5.90) m/uL Hgb 8.9 L D (13.0-17.5) gm/dL Hct 26.3 L (39.0-53.0) % Plt Count 145 L (150-450) k/uL PT 12.1 H (9.0-12.0) sec INR 1.3 H (<1.2) ABG pH (7.35-7.45) ABG pCO2 (35-45) mmHg ABG pO2 (83-108) mmHg ABG Total CO2 (19-24) mmol/L ABG O2 Saturation (94-97) % ABG Hematocrit (34.0-46.0) % ABG Ionized Calcium (4.5-5.3) mg/dL ABG Glucose (75-99) mg/dL Hemoglobin (13.0-17.5) gm/dL Chloride 110 H (98-107) mmol/L Glucose 101 H (74-99) mg/dL POC Glucose (mg/dL) (75-99) mg/dL Calcium 8.1 L (8.4-10.2) mg/dL Alkaline Phosphatase 36 L (38-126) U/L Total Protein 5.6 L (6.3-8.2) g/dL Arterial Blood Glucose (75-99) mg/dL Crossmatch 06/09/18 06/09/18 Range/Units 13:07 15:14 RBC (4.30-5.90) m/uL Hgb (13.0-17.5) gm/dL Hct (39.0-53.0) % Plt Count (150-450) k/uL PT (9.0-12.0) sec INR (<1.2) ABG pH (7.35-7.45) ABG pCO2 (35-45) mmHg ABG pO2 >400 H (83-108) mmHg ABG Total CO2 26 H (19-24) mmol/L ABG O2 Saturation 100.0 H (94-97) % ABG Hematocrit (34.0-46.0) % ABG Ionized Calcium (4.5-5.3) mg/dL ABG Glucose (75-99) mg/dL Hemoglobin (13.0-17.5) gm/dL Chloride (98-107) mmol/L Glucose (74-99) mg/dL POC Glucose (mg/dL) 105 H (75-99) mg/dL Calcium (8.4-10.2) mg/dL Alkaline Phosphatase (38-126) U/L Total Protein (6.3-8.2) g/dL Arterial Blood Glucose (75-99) mg/dL Crossmatch Chest x-ray: report reviewed Assessment and Plan Assessment: Coronary artery status post 3 vessel bypass - Clevidipine, LR, propofol, and nitroglycerin currently infusing. -Management as per primary team Anticipated and expected postoperative acute blood loss anemia and thrombocytopenia -Repeat CBC in a.m. -Transfuse as indicated, no current indication for transfusion Hypertension -Oral medications on hold -Follow blood pressures -BP currently stable -Currently on clevidipine Dyslipidemia - lipitor GERD - PPI Osteoarthritis -Pain control DVT prophylaxis: Heparin SC Discussed with: Nursing A total of 50 minutes was spent on the care of this complex patient more than 50 % of the time was spent in counseling and care coordination.
[2018-06-09 15:58] LABS: Basophils % (A) 0 %; Eosinophils # (A) 0.1 k/uL (0-0.7); Eosinophils % (A) 2 %; HCT 29.9 % (39.0-53.0); HGB 9.9 gm/dL (13.0-17.5); Lymphocytes # (A) 1.1 k/uL (1.0-4.8); Lymphocytes % (A) 14 %; MCH 31.5 pg (25.0-35.0); MCHC 33.1 g/dL (31.0-37.0); MCV 95.2 fL (80.0-100.0); Mean Platelet Volume 7.2; Monocytes # (A) 0.4 k/uL (0-1.0); Monocytes % (A) 5 %; Neutrophils % (A) 77 %; Platelet Count 159 k/uL (150-450); RBC 3.14 m/uL (4.30-5.90); RDW 13.2 % (11.5-15.5); WBC 7.7 k/uL (3.8-10.6)
[2018-06-09 16:27] LABS: Glucose,Whole Blood 112 mg/dL (75-99)
[2018-06-09 17:42] LABS: Glucose,Whole Blood 123 mg/dL (75-99)
[2018-06-09 18:21] LABS: Glucose,Whole Blood 119 mg/dL (75-99)
[2018-06-09 19:17] LABS: Glucose,Whole Blood 112 mg/dL (75-99)
[2018-06-09 19:21] LABS: Basophils % (A) 0 %; Eosinophils % (A) 1 %; HCT 29.5 % (39.0-53.0); HGB 9.9 gm/dL (13.0-17.5); Lymphocytes # (A) 0.4 k/uL (1.0-4.8); Lymphocytes % (A) 6 %; MCH 31.1 pg (25.0-35.0); MCHC 33.4 g/dL (31.0-37.0); MCV 93.2 fL (80.0-100.0); Mean Platelet Volume 7.8; Monocytes # (A) 0.3 k/uL (0-1.0); Monocytes % (A) 4 %; Neutrophils # (A) 6.7 k/uL (1.3-7.7); Neutrophils % (A) 89 %; Platelet Count 154 k/uL (150-450); RBC 3.16 m/uL (4.30-5.90); RDW 13.4 % (11.5-15.5); WBC 7.6 k/uL (3.8-10.6)
[2018-06-09 20:37] LABS: Glucose,Whole Blood 100 mg/dL (75-99)
[2018-06-09] MEDS ORDERED: MUPIROCIN 2% OINT 22 GM TUBE NASAL ONE (20:45)
[2018-06-09 21:27] LABS: Glucose,Whole Blood 113 mg/dL (75-99)
[2018-06-09] MEDS: MUPIROCIN 2% OINT 22 GM TUBE NASAL SCH (21:30)
[2018-06-09 23:08] LABS: Glucose,Whole Blood 116 mg/dL (75-99)
[2018-06-10] MEDS: HEPARIN SODIUM,PORCINE 5,000 UNIT/ML 1 ML VIAL SQ SCH ×4 (00:10→21:22)
[2018-06-10] MEDS: CLEVIDIPINE BUTYRATE 25 MG in EMPTY BAG 1 BAG IV SCH (00:28)
[2018-06-10] MEDS: ACETAMINOPHEN IV (For NPO) 1,000 MG in EMPTY BAG 1 BAG IVPB SCH ×3 (00:41→12:13)
[2018-06-10 00:43] LABS: Glucose,Whole Blood 120 mg/dL (75-99)
[2018-06-10] MEDS: ceFAZolin IN SWFI 2 GM/20 ML SYRINGE IVP SCH ×2 (00:44→08:29)
[2018-06-10 02:14] LABS: Glucose,Whole Blood 112 mg/dL (75-99)
[2018-06-10 03:17] LABS: Glucose,Whole Blood 122 mg/dL (75-99)
[2018-06-10 04:23] LABS: Glucose,Whole Blood 119 mg/dL (75-99)
[2018-06-10 04:29] LABS: Basophils % (A) 0 %; Eosinophils % (A) 0 %; HCT 31.1 % (39.0-53.0); HGB 10.1 gm/dL (13.0-17.5); Ionized Calcium 4.9 mg/dL (4.5-5.3); Lymphocytes # (A) 0.4 k/uL (1.0-4.8); Lymphocytes % (A) 5 %; MCH 30.4 pg (25.0-35.0); MCHC 32.4 g/dL (31.0-37.0); MCV 93.8 fL (80.0-100.0); Mean Platelet Volume 7.3; Monocytes # (A) 0.4 k/uL (0-1.0); Monocytes % (A) 5 %; Neutrophils % (A) 89 %; Platelet Count 140 k/uL (150-450); RBC 3.31 m/uL (4.30-5.90); RDW 13.4 % (11.5-15.5); WBC 7.8 k/uL (3.8-10.6)
[2018-06-10 04:40] LABS: Albumin 3.6 g/dL (3.5-5.0); Calcium 8.5 mg/dL (8.4-10.2); Magnesium 1.9 mg/dL (1.6-2.3); Potassium 4.3 mmol/L (3.5-5.1); Total Bilirubin 0.4 mg/dL (0.2-1.3); Total Protein 5.7 g/dL (6.3-8.2)
[2018-06-10 04:48] LABS: INR 1.1 (<1.2); Partial Thromboplastin Time 24.5 sec (22.0-30.0); Prothrombin Time 10.5 sec (9.0-12.0)
[2018-06-10 05:09] LABS: Glucose,Whole Blood 118 mg/dL (75-99)
[2018-06-10] MEDS: MAGNESIUM SULFATE-D5W PMX 1 GM in DEXTROSE/WATER 1 100ML.BAG IVPB SCH ×2 (06:03→09:06)
[2018-06-10 06:24] LABS: Glucose,Whole Blood 113 mg/dL (75-99)
--- NOTE | 2018-06-10 06:42 | XR ---
EXAMINATION TYPE: XR chest 1V portable DATE OF EXAM: 06/10/2018 CLINICAL HISTORY: Difficulty breathing progress study. Post open cardiac surgery. TECHNIQUE: Single AP portable upright view of the chest is obtained. COMPARISON: Chest x-ray from one day earlier FINDINGS: There is interval extubation with removal of endotracheal and orogastric tubes. There are stable right internal jugular Clint-Melody catheter, left-sided chest tube, and mediastinal drainage cat heter. Post CABG changes with mediastinal clips and sternal wires is redemonstrated. Cardiac silhouette size is stable and mildly enlarged. There is slightly more prominent right basilar opacity. There is stab le left basilar opacity. No sizable pneumothorax is seen. Degenerative change bilateral glenohumeral joints is redemonstrated. IMPRESSION: Interval extubation. Persistent cardiomegaly with bibasilar atelectasis and/or infiltrate , findings have worsened in the right lung base versus prior.
[2018-06-10] MEDS: IPRATROPIUM-ALBUTEROL 3 ML NEB INHALATION SCH ×4 (07:50→19:52)
--- NOTE | 2018-06-10 07:50 | PN ---
PROGRESS NOTE Mr. Denton is an 78-year-old male who underwent coronary artery bypass grafting yesterday. He is extubated, in sinus mechanism, had no evidence of tachycardia or bradycardia. Hemodynamically stable. He is on no pressor. He is on IV nitroglycerin that will be discontinued this morning. He continues to be on aspirin once a day, Lipitor 40 mg daily, Plavix 75 mg daily and metoprolol tartrate 12.5 mg twice a day. PHYSICAL EXAMINATION: Blood pressure 140/60 with a heart rate in 70s. LUNGS: A few crackles at the bases. HEART: Regular rate and rhythm. S1, S2. No S3. Plus rub, no gallop. ABDOMEN: Soft. Positive bowel sounds. EXTREMITIES: RADHA wrapping in place. Chest x-ray, no acute infiltrate. LAB DATA: Revealed BUN and creatinine 19 and 1.1, hemoglobin 10.1, white blood cell of 7.8. IMPRESSION: 1. Status post coronary artery bypass grafting stable. 2. History of hypertension. 3. Hyperlipidemia. 4. Osteoarthritis. RECOMMENDATION: Will continue present therapy, follow his blood pressure and depending on that, the losartan can be re-initiated and the dose of the beta lbane can be further adjusted. MMODL / IJN: [id number] /
--- NOTE | 2018-06-10 07:53 | P.PN ---
Subjective Progress Note Date: 06/10/18 Principal diagnosis: Coronary artery disease, status post three-vessel bypass grafting, with JOLLY to LAD, SVG to PDA and SVG to the diagonal branch Pulmonary consultation dated 06/09/2018 78-year-old male with history of CAD, hypertension, hyperlipidemia, and DJD. The patient was recently evaluated for shortness of breath particularly with exercise. He apparently was being evaluated for possible hip replacement because of arthritis. For that reason he was seen by cardiology catheterization was done and showed severe three-vessel coronary artery disease. Today, he went to the OR and had a three-vessel bypass. The surgery was done by Dr. Blas Griffin. He had a JOLLY to LAD bypass, saphenous vein graft bypasses to the PDA and diagonal coronary artery. Currently, the patient just arrived back in the ICU. He is on the SIMV mode of ventilation with a rate of 12, tidal volume 500, FiO2 100%, and PEEP of 5. On those settings, his arterial blood gas showed a PaO2 greater than 400, a PaCO2 of 44 and a pH of 7.35. We added duo nebs every 4 [id number]. He is currently also on lactated Ringer's at 50 mL an hour, propofol at 15 mics per kilogram per minute , Cleveprex at 6 mg an hour and nitroglycerin at 5 mcg/m. Currently, chest x- ray is pending. On 06/10/2018 patient seen in follow-up in the intensive care unit, he is awake and alert, patient was extubated at 1545, patient extubated within 3 hours of OR exit time. This morning he seen in the intensive care unit, he is resting in bed, currently on 2 L per nasal cannula, and his pulse ox is 98%, he is afebrile, hemodynamically stable, his current IV fluids include LR at a rate of 50 ML per hour, nitroglycerin has been discontinued, cooperative has been discontinued as well. He is awake and alert, in no acute distress, lung sounds are clear to auscultation. Is working on his incentive spirometry, and ice 750 ML, his chest x-ray has been reviewed by Dr. Hope, showed small left plural effusion, and atelectasis. His labs have been reviewed, showed FVC of 7.8, hemoglobin 10.1, his electrolytes and renal profile are unremarkable. Patient is in sinus rhythm. Cardiac output and cardiac index is 6.3 and 3.4. He has a left pleural and mediastinal chest tube and there has been 390 mL of serosanguineous drainage in the Pleur-evac over the last 24 hours. Patient is nonoliguric. He will be started on clear liquid diet this morning. No acute events overnight, patient is doing very well Objective - Vital Signs Vital signs: Vital Signs Temp 99.2 F 06/10/18 04:00 Pulse 73 06/10/18 06:30 Resp 18 06/10/18 06:30 BP 138/78 06/10/18 06:30 Pulse Ox 97 06/10/18 06:30 Intake & Output 06/09/18 06/10/18 06/10/18 18:59 06:59 18:59 Intake Total 725.144 2838.417 Output Total 1170 827 Balance -613.367 536.417 Weight 82.1 kg Intake: IV 527 1001.5 ACETAMINOPHEN IV (For NPO 100 200 ) 1,000 mg In Empty Bag 1 bag @ 400 mls/hr IVPB Q6HR [facility] Rx#:[id number] Co/CI 100 110 Lactated Ringers 1,000 ml 270 570 @ 50 mls/hr IV .Q20H [facility] Rx#:[id number] Nitroglycerin-D5w Pmx 50 13.5 mg In Dextrose/Water 1 250ml.bag @ 5 MCG/MIN 1.5 mls/hr IV .Q24H [facility] Rx#: [id number] pressure bags 54 108 Intake, IV Titration 29.633 271.917 Amount Clevidipine Butyrate 25 29.633 170.367 mg In Empty Bag 1 bag @ 1 MG/HR 2 mls/hr IV .Q24H [facility] Rx#:[id number] Insulin Regular 100 unit 1.55 In Sodium Chloride 0.9% 100 ml @ Per Protocol IV .Q0M [facility] Rx#:[id number] Magnesium Sulfate-D5w Pmx 100 1 gm In Dextrose/Water 1 100ml.bag @ 100 mls/hr IVPB Q1H [facility] Rx#: [id number] Oral 90 Output: Chest Tube Drainage 165 225 Left Pleural/Mediastinal 165 225 Urine 705 602 Estimated Blood Loss 300 Other: Voiding Method Indwelling Catheter Indwelling Catheter ABP, PAP, CO, CI - Last Documented Arterial Blood Pressure 143/65 Pulmonary Artery Pressure 36/18 Cardiac Output 6.3 Cardiac Index 3.4 - Exam GENERAL EXAM: Alert, pleasant 78-year-old white male, comfortable in no apparent distress. HEAD: Normocephalic/atraumatic. EYES: Normal reaction of pupils, equal size. Conjunctiva pink, sclera white. NOSE: Clear with pink turbinates. THROAT: No erythema or exudates. NECK: No masses, no JVD, no thyroid enlargement, no adenopathy. CHEST: No chest wall deformity. Symmetrical expansion. Sternal incision is clean dry and intact, approximated, sternum stable, patient has left pleural and mediastinal chest tube, to wall suction, with small amount of serosanguineous drainage in the Pleur-evac. No air leak noted, epicardial wires are in place LUNGS: Equal air entry with no crackles, wheeze, rhonchi or dullness. CVS: Regular rate and rhythm, normal S1 and S2, no gallops, no murmurs, no rubs ABDOMEN: Soft, nontender. No hepatosplenomegaly, normal bowel sounds, no guarding or rigidity. EXTREMITIES: No clubbing, no edema, no cyanosis, 2+ pulses and upper and lower extremities. MUSCULOSKELETAL: Muscle strength and tone normal. SPINE: No scoliosis or deformity SKIN: No rashes CENTRAL NERVOUS SYSTEM: Alert and oriented -3. No focal deficits, tone is normal in all 4 extremities. PSYCHIATRIC: Alert and oriented -3. Appropriate affect. Intact judgment and insight. - Labs CBC & Chem 7: 06/10/18 04:13 06/10/18 04:13 Labs: Abnormal Lab Results - Last 24 Hours (Table) 06/01/18 06/09/18 06/09/18 Range/Units 09:25 08:54 09:57 RBC (4.30-5.90) m/uL Hgb (13.0-17.5) gm/dL Hct (39.0-53.0) % Plt Count (150-450) k/uL Lymphocytes # (1.0-4.8) k/uL PT (9.0-12.0) sec INR (<1.2) ABG pH 7.34 L (7.35-7.45) ABG pCO2 46 H (35-45) mmHg ABG pO2 >420 H 312 H (83-108) mmHg ABG Total CO2 27 H 27 H (19-24) mmol/L ABG O2 Saturation 99.8 H 99.9 H (94-97) % ABG Hematocrit 33 L (34.0-46.0) % ABG Ionized Calcium (4.5-5.3) mg/dL ABG Glucose 123 H (75-99) mg/dL Hemoglobin 11.3 L 10.8 L (13.0-17.5) gm/dL Chloride (98-107) mmol/L Glucose (74-99) mg/dL POC Glucose (mg/dL) (75-99) mg/dL Calcium (8.4-10.2) mg/dL Alkaline Phosphatase (38-126) U/L Total Protein (6.3-8.2) g/dL Arterial Blood Glucose 123 H (75-99) mg/dL Crossmatch See Detail 06/09/18 06/09/18 06/09/18 Range/Units 10:44 11:25 12:40 RBC (4.30-5.90) m/uL Hgb (13.0-17.5) gm/dL Hct (39.0-53.0) % Plt Count (150-450) k/uL Lymphocytes # (1.0-4.8) k/uL PT (9.0-12.0) sec INR (<1.2) ABG pH (7.35-7.45) ABG pCO2 (35-45) mmHg ABG pO2 328 H 318 H (83-108) mmHg ABG Total CO2 25 H (19-24) mmol/L ABG O2 Saturation 99.8 H 99.8 H (94-97) % ABG Hematocrit 30 L 28 L (34.0-46.0) % ABG Ionized Calcium 4.4 L (4.5-5.3) mg/dL ABG Glucose 109 H 107 H (75-99) mg/dL Hemoglobin 9.6 L 9.0 L (13.0-17.5) gm/dL Chloride (98-107) mmol/L Glucose (74-99) mg/dL POC Glucose (mg/dL) 107 H (75-99) mg/dL Calcium (8.4-10.2) mg/dL Alkaline Phosphatase (38-126) U/L Total Protein (6.3-8.2) g/dL Arterial Blood Glucose 109 H 107 H (75-99) mg/dL Crossmatch 06/09/18 06/09/18 06/09/18 Range/Units 12:40 12:40 12:40 RBC 2.77 L (4.30-5.90) m/uL Hgb 8.9 L D (13.0-17.5) gm/dL Hct 26.3 L (39.0-53.0) % Plt Count 145 L (150-450) k/uL Lymphocytes # (1.0-4.8) k/uL PT 12.1 H (9.0-12.0) sec INR 1.3 H (<1.2) ABG pH (7.35-7.45) ABG pCO2 (35-45) mmHg ABG pO2 (83-108) mmHg ABG Total CO2 (19-24) mmol/L ABG O2 Saturation (94-97) % ABG Hematocrit (34.0-46.0) % ABG Ionized Calcium (4.5-5.3) mg/dL ABG Glucose (75-99) mg/dL Hemoglobin (13.0-17.5) gm/dL Chloride 110 H (98-107) mmol/L Glucose 101 H (74-99) mg/dL POC Glucose (mg/dL) (75-99) mg/dL Calcium 8.1 L (8.4-10.2) mg/dL Alkaline Phosphatase 36 L (38-126) U/L Total Protein 5.6 L (6.3-8.2) g/dL Arterial Blood Glucose (75-99) mg/dL Crossmatch 06/09/18 06/09/18 06/09/18 Range/Units 13:07 15:14 15:24 RBC (4.30-5.90) m/uL Hgb (13.0-17.5) gm/dL Hct (39.0-53.0) % Plt Count (150-450) k/uL Lymphocytes # (1.0-4.8) k/uL PT (9.0-12.0) sec INR (<1.2) ABG pH 7.32 L (7.35-7.45) ABG pCO2 47 H (35-45) mmHg ABG pO2 >400 H (83-108) mmHg ABG Total CO2 26 H 26 H (19-24) mmol/L ABG O2 Saturation 100.0 H 97.7 H (94-97) % ABG Hematocrit (34.0-46.0) % ABG Ionized Calcium (4.5-5.3) mg/dL ABG Glucose (75-99) mg/dL Hemoglobin (13.0-17.5) gm/dL Chloride (98-107) mmol/L Glucose (74-99) mg/dL POC Glucose (mg/dL) 105 H (75-99) mg/dL Calcium (8.4-10.2) mg/dL Alkaline Phosphatase (38-126) U/L Total Protein (6.3-8.2) g/dL Arterial Blood Glucose (75-99) mg/dL Crossmatch 06/09/18 06/09/18 06/09/18 Range/Units 15:30 16:16 17:30 RBC 3.14 L (4.30-5.90) m/uL Hgb 9.9 L (13.0-17.5) gm/dL Hct 29.9 L (39.0-53.0) % Plt Count (150-450) k/uL Lymphocytes # (1.0-4.8) k/uL PT (9.0-12.0) sec INR (<1.2) ABG pH (7.35-7.45) ABG pCO2 (35-45) mmHg ABG pO2 (83-108) mmHg ABG Total CO2 (19-24) mmol/L ABG O2 Saturation (94-97) % ABG Hematocrit (34.0-46.0) % ABG Ionized Calcium (4.5-5.3) mg/dL ABG Glucose (75-99) mg/dL Hemoglobin (13.0-17.5) gm/dL Chloride (98-107) mmol/L Glucose (74-99) mg/dL POC Glucose (mg/dL) 112 H 123 H (75-99) mg/dL Calcium (8.4-10.2) mg/dL Alkaline Phosphatase (38-126) U/L Total Protein (6.3-8.2) g/dL Arterial Blood Glucose (75-99) mg/dL Crossmatch 06/09/18 06/09/18 06/09/18 Range/Units 18:10 19:06 19:13 RBC 3.16 L (4.30-5.90) m/uL Hgb 9.9 L (13.0-17.5) gm/dL Hct 29.5 L (39.0-53.0) % Plt Count (150-450) k/uL Lymphocytes # 0.4 L (1.0-4.8) k/uL PT (9.0-12.0) sec INR (<1.2) ABG pH (7.35-7.45) ABG pCO2 (35-45) mmHg ABG pO2 (83-108) mmHg ABG Total CO2 (19-24) mmol/L ABG O2 Saturation (94-97) % ABG Hematocrit (34.0-46.0) % ABG Ionized Calcium (4.5-5.3) mg/dL ABG Glucose (75-99) mg/dL Hemoglobin (13.0-17.5) gm/dL Chloride (98-107) mmol/L Glucose (74-99) mg/dL POC Glucose (mg/dL) 119 H 112 H (75-99) mg/dL Calcium (8.4-10.2) mg/dL Alkaline Phosphatase (38-126) U/L Total Protein (6.3-8.2) g/dL Arterial Blood Glucose (75-99) mg/dL Crossmatch 06/09/18 06/09/18 06/09/18 Range/Units 20:25 21:16 22:56 RBC (4.30-5.90) m/uL Hgb (13.0-17.5) gm/dL Hct (39.0-53.0) % Plt Count (150-450) k/uL Lymphocytes # (1.0-4.8) k/uL PT (9.0-12.0) sec INR (<1.2) ABG pH (7.35-7.45) ABG pCO2 (35-45) mmHg ABG pO2 (83-108) mmHg ABG Total CO2 (19-24) mmol/L ABG O2 Saturation (94-97) % ABG Hematocrit (34.0-46.0) % ABG Ionized Calcium (4.5-5.3) mg/dL ABG Glucose (75-99) mg/dL Hemoglobin (13.0-17.5) gm/dL Chloride (98-107) mmol/L Glucose (74-99) mg/dL POC Glucose (mg/dL) 100 H 113 H 116 H (75-99) mg/dL Calcium (8.4-10.2) mg/dL Alkaline Phosphatase (38-126) U/L Total Protein (6.3-8.2) g/dL Arterial Blood Glucose (75-99) mg/dL Crossmatch 06/10/18 06/10/18 06/10/18 Range/Units 00:31 02:02 03:06 RBC (4.30-5.90) m/uL Hgb (13.0-17.5) gm/dL Hct (39.0-53.0) % Plt Count (150-450) k/uL Lymphocytes # (1.0-4.8) k/uL PT (9.0-12.0) sec INR (<1.2) ABG pH (7.35-7.45) ABG pCO2 (35-45) mmHg ABG pO2 (83-108) mmHg ABG Total CO2 (19-24) mmol/L ABG O2 Saturation (94-97) % ABG Hematocrit (34.0-46.0) % ABG Ionized Calcium (4.5-5.3) mg/dL ABG Glucose (75-99) mg/dL Hemoglobin (13.0-17.5) gm/dL Chloride (98-107) mmol/L Glucose (74-99) mg/dL POC Glucose (mg/dL) 120 H 112 H 122 H (75-99) mg/dL Calcium (8.4-10.2) mg/dL Alkaline Phosphatase (38-126) U/L Total Protein (6.3-8.2) g/dL Arterial Blood Glucose (75-99) mg/dL Crossmatch 06/10/18 06/10/18 06/10/18 Range/Units 04:02 04:13 04:13 RBC 3.31 L (4.30-5.90) m/uL Hgb 10.1 L (13.0-17.5) gm/dL Hct 31.1 L (39.0-53.0) % Plt Count 140 L (150-450) k/uL Lymphocytes # 0.4 L (1.0-4.8) k/uL PT (9.0-12.0) sec INR (<1.2) ABG pH (7.35-7.45) ABG pCO2 (35-45) mmHg ABG pO2 (83-108) mmHg ABG Total CO2 (19-24) mmol/L ABG O2 Saturation (94-97) % ABG Hematocrit (34.0-46.0) % ABG Ionized Calcium (4.5-5.3) mg/dL ABG Glucose (75-99) mg/dL Hemoglobin (13.0-17.5) gm/dL Chloride 108 H (98-107) mmol/L Glucose 113 H (74-99) mg/dL POC Glucose (mg/dL) 119 H (75-99) mg/dL Calcium (8.4-10.2) mg/dL Alkaline Phosphatase (38-126) U/L Total Protein 5.7 L (6.3-8.2) g/dL Arterial Blood Glucose (75-99) mg/dL Crossmatch 06/10/18 06/10/18 Range/Units 04:57 06:02 RBC (4.30-5.90) m/uL Hgb (13.0-17.5) gm/dL Hct (39.0-53.0) % Plt Count (150-450) k/uL Lymphocytes # (1.0-4.8) k/uL PT (9.0-12.0) sec INR (<1.2) ABG pH (7.35-7.45) ABG pCO2 (35-45) mmHg ABG pO2 (83-108) mmHg ABG Total CO2 (19-24) mmol/L ABG O2 Saturation (94-97) % ABG Hematocrit (34.0-46.0) % ABG Ionized Calcium (4.5-5.3) mg/dL ABG Glucose (75-99) mg/dL Hemoglobin (13.0-17.5) gm/dL Chloride (98-107) mmol/L Glucose (74-99) mg/dL POC Glucose (mg/dL) 118 H 113 H (75-99) mg/dL Calcium (8.4-10.2) mg/dL Alkaline Phosphatase (38-126) U/L Total Protein (6.3-8.2) g/dL Arterial Blood Glucose (75-99) mg/dL Crossmatch Assessment and Plan Plan: Postop day # 1, status post three-vessel bypass grafting, with JOLLY to LAD, SVG to PDA, and SVG to diagonal. Routine postoperative ventilator management History of CAD History of DJD History of hypertension History of hyperlipidemia History of vitamin D deficiency Plan: Continue encouraging breathing and coughing, incentive spirometry use, today's chest x-ray has been reviewed by Dr. Hope and was positive for small left pleural effusion, and atelectasis. Overall patient is doing very well, he is compliant with his incentive spirometry, patient extubated within 3 hours of the OR exit time. Pain control, the patient up in the chair, early ambulation. Continue monitoring hemodynamics, chest tube output. Will be started on clear liquid diet today. Continue with DuoNeb nebulized treatments on an as- needed basis. We'll continue to follow I performed a history & physical examination of the patient and discussed their management with my nurse practitioner, Reyna Loredo. I reviewed the nurse practitioner's note and agree with the documented findings and plan of care. Lung sounds are diminished breath sounds. The findings and the impression was discussed with the patient. I attest to the documentation by the nurse practitioner. Time with Patient: Greater than 30
[2018-06-10 07:55] LABS: Glucose,Whole Blood 136 mg/dL (75-99)
[2018-06-10] MEDS: CLOPIDOGREL 75 MG TAB PO SCH (08:31)
[2018-06-10] MEDS: ATORVASTATIN 40 MG TAB PO SCH (08:31)
[2018-06-10] MEDS: METOPROLOL TARTRATE 12.5 MG TAB PO SCH ×2 (08:31→21:23)
[2018-06-10] MEDS: ASPIRIN 325 MG TAB PO SCH (08:31)
[2018-06-10] MEDS: KETOROLAC 30 MG/ML 1 ML VIAL IVP SCH ×3 (08:33→18:36)
[2018-06-10] MEDS ORDERED: PANTOPRAZOLE 40 MG/10 ML VIAL IVP SCH (09:00)
[2018-06-10] MEDS: INSULIN ASPART 100 UNIT/ML 1 ML 10 ML VIAL SQ SCH ×4 (09:06→21:42)
[2018-06-10] MEDS: HYDROcodone/APAP 5-325MG 1 EACH TAB PO PRN (10:26)
--- NOTE | 2018-06-10 10:35 | P.PN ---
Subjective Progress Note Date: 06/10/18 Principal diagnosis: Coronary artery disease. previous medical history of hypertension, hyperlipidemia, arthritis, and family history of coronary artery disease. POD #1 off-pump coronary artery bypass grafting 3 with the left internal mammary artery to the left anterior descending artery and reverse saphenous vein graft to the first obtuse marginal and diagonal branches with endovascular vein harvest of the left thigh and intraoperative transesophageal echocardiogram by anesthesia. Patient is currently sitting up in a recliner in no acute distress. States pain is well-controlled, denies shortness of breath. No new complaints. Currently not on any inotropes or pressors, remains hemodynamically stable. He was successfully extubated yesterday 15:45. Objective - Vital Signs Vital signs: Vital Signs Temp 99.2 F 06/10/18 04:00 Pulse 71 06/10/18 08:07 Resp 19 06/10/18 08:00 BP 133/75 06/10/18 08:00 Pulse Ox 98 06/10/18 08:00 Intake & Output 06/09/18 06/10/18 06/10/18 18:59 06:59 18:59 Intake Total 544.805 8166.417 219.5 Output Total 1170 827 275 Balance -613.367 536.417 -55.5 Weight 82.1 kg Intake: IV 527 1101.5 219.5 ACETAMINOPHEN IV (For NPO 100 200 ) 1,000 mg In Empty Bag 1 bag @ 400 mls/hr IVPB Q6HR [facility] Rx#:[id number] Co/CI 100 110 Lactated Ringers 1,000 ml 270 570 100 @ 20 mls/hr IV .Q24H [facility] Rx#:[id number] Magnesium Sulfate-D5w Pmx 100 100 1 gm In Dextrose/Water 1 100ml.bag @ 100 mls/hr IVPB Q1H [facility] Rx#: [id number] Nitroglycerin-D5w Pmx 50 13.5 1.5 mg In Dextrose/Water 1 250ml.bag @ 5 MCG/MIN 1.5 mls/hr IV .Q24H [facility] Rx#: [id number] pressure bags 54 108 18 Intake, IV Titration 29.633 171.917 Amount Clevidipine Butyrate 25 29.633 170.367 mg In Empty Bag 1 bag @ 1 MG/HR 2 mls/hr IV .Q24H [facility] Rx#:[id number] Insulin Regular 100 unit 1.55 In Sodium Chloride 0.9% 100 ml @ Per Protocol IV .Q0M [facility] Rx#:[id number] Oral 90 Output: Chest Tube Drainage 165 225 210 Left Pleural/Mediastinal 165 225 210 Urine 705 602 65 Estimated Blood Loss 300 Other: Voiding Method Indwelling Catheter Indwelling Catheter ABP, PAP, CO, CI - Last Documented Arterial Blood Pressure 114/46 Pulmonary Artery Pressure 20/6 Cardiac Output 6.3 Cardiac Index 3.4 - Constitutional General appearance: Present: cooperative, no acute distress - Respiratory Details: Lungs sounds diminished bilaterally. Respirations even, nonlabored. Currently on 2 L nasal cannula with oxygen saturations 96%. Able to achieve 750-1000 mL on his incentive spirometry. Effective cough. Mediastinal/left pleural chest tube to continuous wall suction, 180 mL serosanguineous drainage overnight, 600 mL since surgery, no air leaks present. - Cardiovascular Details: S1, S2 present, positive rub. Regular rate and rhythm, sinus rhythm on telemetry. Sternum stable. A/V epicardial pacemaker wires present, grounded. Palpable peripheral pulses bilaterally. No edema present. No calf pain or tenderness noted. Right internal jugular [place]ordis, right radial arterial line present. Last CO/CI 6.3/3.4 on no inotropes. Heart hugger in place with patient demonstrating appropriate use. Antiembolism stockings, SCDs present. - Gastrointestinal Gastrointestinal Comment(s): Abdomen soft, nontender, nondistended. Active bowel sounds present 4 quadrants. Tolerating diet. Negative flatus. - Genitourinary Genitourinary Comment(s): Mose[place] present draining clear, yellow urine. Output 40-50 mL per hour overnight , 400 mL last 8 hours. - Integumentary Integumentary Comment(s): Skin is warm and dry with evidence of good perfusion. Anterior chest incision well approximated covered with dry intact dressing. Left lower extremity EVH site well approximated. - Neurologic Neurologic: Present: CNII-XII intact - Musculoskeletal Musculoskeletal: Present: gait normal, strength equal bilaterally - Psychiatric Psychiatric: Present: A&O x's 3, appropriate affect, intact judgment & insight - Allied health notes Allied health notes reviewed: nursing - Labs CBC & Chem 7: 06/10/18 04:13 06/10/18 04:13 Labs: Abnormal Lab Results - Last 24 Hours (Table) 06/01/18 06/09/18 06/09/18 Range/Units 09:25 08:54 09:57 RBC (4.30-5.90) m/uL Hgb (13.0-17.5) gm/dL Hct (39.0-53.0) % Plt Count (150-450) k/uL Lymphocytes # (1.0-4.8) k/uL PT (9.0-12.0) sec INR (<1.2) ABG pH 7.34 L (7.35-7.45) ABG pCO2 46 H (35-45) mmHg ABG pO2 >420 H 312 H (83-108) mmHg ABG Total CO2 27 H 27 H (19-24) mmol/L ABG O2 Saturation 99.8 H 99.9 H (94-97) % ABG Hematocrit 33 L (34.0-46.0) % ABG Ionized Calcium (4.5-5.3) mg/dL ABG Glucose 123 H (75-99) mg/dL Hemoglobin 11.3 L 10.8 L (13.0-17.5) gm/dL Chloride (98-107) mmol/L Glucose (74-99) mg/dL POC Glucose (mg/dL) (75-99) mg/dL Calcium (8.4-10.2) mg/dL Alkaline Phosphatase (38-126) U/L Total Protein (6.3-8.2) g/dL Arterial Blood Glucose 123 H (75-99) mg/dL Crossmatch See Detail 06/09/18 06/09/18 06/09/18 Range/Units 10:44 11:25 12:40 RBC (4.30-5.90) m/uL Hgb (13.0-17.5) gm/dL Hct (39.0-53.0) % Plt Count (150-450) k/uL Lymphocytes # (1.0-4.8) k/uL PT (9.0-12.0) sec INR (<1.2) ABG pH (7.35-7.45) ABG pCO2 (35-45) mmHg ABG pO2 328 H 318 H (83-108) mmHg ABG Total CO2 25 H (19-24) mmol/L ABG O2 Saturation 99.8 H 99.8 H (94-97) % ABG Hematocrit 30 L 28 L (34.0-46.0) % ABG Ionized Calcium 4.4 L (4.5-5.3) mg/dL ABG Glucose 109 H 107 H (75-99) mg/dL Hemoglobin 9.6 L 9.0 L (13.0-17.5) gm/dL Chloride (98-107) mmol/L Glucose (74-99) mg/dL POC Glucose (mg/dL) 107 H (75-99) mg/dL Calcium (8.4-10.2) mg/dL Alkaline Phosphatase (38-126) U/L Total Protein (6.3-8.2) g/dL Arterial Blood Glucose 109 H 107 H (75-99) mg/dL Crossmatch 06/09/18 06/09/18 06/09/18 Range/Units 12:40 12:40 12:40 RBC 2.77 L (4.30-5.90) m/uL Hgb 8.9 L D (13.0-17.5) gm/dL Hct 26.3 L (39.0-53.0) % Plt Count 145 L (150-450) k/uL Lymphocytes # (1.0-4.8) k/uL PT 12.1 H (9.0-12.0) sec INR 1.3 H (<1.2) ABG pH (7.35-7.45) ABG pCO2 (35-45) mmHg ABG pO2 (83-108) mmHg ABG Total CO2 (19-24) mmol/L ABG O2 Saturation (94-97) % ABG Hematocrit (34.0-46.0) % ABG Ionized Calcium (4.5-5.3) mg/dL ABG Glucose (75-99) mg/dL Hemoglobin (13.0-17.5) gm/dL Chloride 110 H (98-107) mmol/L Glucose 101 H (74-99) mg/dL POC Glucose (mg/dL) (75-99) mg/dL Calcium 8.1 L (8.4-10.2) mg/dL Alkaline Phosphatase 36 L (38-126) U/L Total Protein 5.6 L (6.3-8.2) g/dL Arterial Blood Glucose (75-99) mg/dL Crossmatch 06/09/18 06/09/18 06/09/18 Range/Units 13:07 15:14 15:24 RBC (4.30-5.90) m/uL Hgb (13.0-17.5) gm/dL Hct (39.0-53.0) % Plt Count (150-450) k/uL Lymphocytes # (1.0-4.8) k/uL PT (9.0-12.0) sec INR (<1.2) ABG pH 7.32 L (7.35-7.45) ABG pCO2 47 H (35-45) mmHg ABG pO2 >400 H (83-108) mmHg ABG Total CO2 26 H 26 H (19-24) mmol/L ABG O2 Saturation 100.0 H 97.7 H (94-97) % ABG Hematocrit (34.0-46.0) % ABG Ionized Calcium (4.5-5.3) mg/dL ABG Glucose (75-99) mg/dL Hemoglobin (13.0-17.5) gm/dL Chloride (98-107) mmol/L Glucose (74-99) mg/dL POC Glucose (mg/dL) 105 H (75-99) mg/dL Calcium (8.4-10.2) mg/dL Alkaline Phosphatase (38-126) U/L Total Protein (6.3-8.2) g/dL Arterial Blood Glucose (75-99) mg/dL Crossmatch 06/09/18 06/09/18 06/09/18 Range/Units 15:30 16:16 17:30 RBC 3.14 L (4.30-5.90) m/uL Hgb 9.9 L (13.0-17.5) gm/dL Hct 29.9 L (39.0-53.0) % Plt Count (150-450) k/uL Lymphocytes # (1.0-4.8) k/uL PT (9.0-12.0) sec INR (<1.2) ABG pH (7.35-7.45) ABG pCO2 (35-45) mmHg ABG pO2 (83-108) mmHg ABG Total CO2 (19-24) mmol/L ABG O2 Saturation (94-97) % ABG Hematocrit (34.0-46.0) % ABG Ionized Calcium (4.5-5.3) mg/dL ABG Glucose (75-99) mg/dL Hemoglobin (13.0-17.5) gm/dL Chloride (98-107) mmol/L Glucose (74-99) mg/dL POC Glucose (mg/dL) 112 H 123 H (75-99) mg/dL Calcium (8.4-10.2) mg/dL Alkaline Phosphatase (38-126) U/L Total Protein (6.3-8.2) g/dL Arterial Blood Glucose (75-99) mg/dL Crossmatch 06/09/18 06/09/18 06/09/18 Range/Units 18:10 19:06 19:13 RBC 3.16 L (4.30-5.90) m/uL Hgb 9.9 L (13.0-17.5) gm/dL Hct 29.5 L (39.0-53.0) % Plt Count (150-450) k/uL Lymphocytes # 0.4 L (1.0-4.8) k/uL PT (9.0-12.0) sec INR (<1.2) ABG pH (7.35-7.45) ABG pCO2 (35-45) mmHg ABG pO2 (83-108) mmHg ABG Total CO2 (19-24) mmol/L ABG O2 Saturation (94-97) % ABG Hematocrit (34.0-46.0) % ABG Ionized Calcium (4.5-5.3) mg/dL ABG Glucose (75-99) mg/dL Hemoglobin (13.0-17.5) gm/dL Chloride (98-107) mmol/L Glucose (74-99) mg/dL POC Glucose (mg/dL) 119 H 112 H (75-99) mg/dL Calcium (8.4-10.2) mg/dL Alkaline Phosphatase (38-126) U/L Total Protein (6.3-8.2) g/dL Arterial Blood Glucose (75-99) mg/dL Crossmatch 06/09/18 06/09/18 06/09/18 Range/Units 20:25 21:16 22:56 RBC (4.30-5.90) m/uL Hgb (13.0-17.5) gm/dL Hct (39.0-53.0) % Plt Count (150-450) k/uL Lymphocytes # (1.0-4.8) k/uL PT (9.0-12.0) sec INR (<1.2) ABG pH (7.35-7.45) ABG pCO2 (35-45) mmHg ABG pO2 (83-108) mmHg ABG Total CO2 (19-24) mmol/L ABG O2 Saturation (94-97) % ABG Hematocrit (34.0-46.0) % ABG Ionized Calcium (4.5-5.3) mg/dL ABG Glucose (75-99) mg/dL Hemoglobin (13.0-17.5) gm/dL Chloride (98-107) mmol/L Glucose (74-99) mg/dL POC Glucose (mg/dL) 100 H 113 H 116 H (75-99) mg/dL Calcium (8.4-10.2) mg/dL Alkaline Phosphatase (38-126) U/L Total Protein (6.3-8.2) g/dL Arterial Blood Glucose (75-99) mg/dL Crossmatch 06/10/18 06/10/18 06/10/18 Range/Units 00:31 02:02 03:06 RBC (4.30-5.90) m/uL Hgb (13.0-17.5) gm/dL Hct (39.0-53.0) % Plt Count (150-450) k/uL Lymphocytes # (1.0-4.8) k/uL PT (9.0-12.0) sec INR (<1.2) ABG pH (7.35-7.45) ABG pCO2 (35-45) mmHg ABG pO2 (83-108) mmHg ABG Total CO2 (19-24) mmol/L ABG O2 Saturation (94-97) % ABG Hematocrit (34.0-46.0) % ABG Ionized Calcium (4.5-5.3) mg/dL ABG Glucose (75-99) mg/dL Hemoglobin (13.0-17.5) gm/dL Chloride (98-107) mmol/L Glucose (74-99) mg/dL POC Glucose (mg/dL) 120 H 112 H 122 H (75-99) mg/dL Calcium (8.4-10.2) mg/dL Alkaline Phosphatase (38-126) U/L Total Protein (6.3-8.2) g/dL Arterial Blood Glucose (75-99) mg/dL Crossmatch 06/10/18 06/10/18 06/10/18 Range/Units 04:02 04:13 04:13 RBC 3.31 L (4.30-5.90) m/uL Hgb 10.1 L (13.0-17.5) gm/dL Hct 31.1 L (39.0-53.0) % Plt Count 140 L (150-450) k/uL Lymphocytes # 0.4 L (1.0-4.8) k/uL PT (9.0-12.0) sec INR (<1.2) ABG pH (7.35-7.45) ABG pCO2 (35-45) mmHg ABG pO2 (83-108) mmHg ABG Total CO2 (19-24) mmol/L ABG O2 Saturation (94-97) % ABG Hematocrit (34.0-46.0) % ABG Ionized Calcium (4.5-5.3) mg/dL ABG Glucose (75-99) mg/dL Hemoglobin (13.0-17.5) gm/dL Chloride 108 H (98-107) mmol/L Glucose 113 H (74-99) mg/dL POC Glucose (mg/dL) 119 H (75-99) mg/dL Calcium (8.4-10.2) mg/dL Alkaline Phosphatase (38-126) U/L Total Protein 5.7 L (6.3-8.2) g/dL Arterial Blood Glucose (75-99) mg/dL Crossmatch 06/10/18 06/10/18 06/10/18 Range/Units 04:57 06:02 07:42 RBC (4.30-5.90) m/uL Hgb (13.0-17.5) gm/dL Hct (39.0-53.0) % Plt Count (150-450) k/uL Lymphocytes # (1.0-4.8) k/uL PT (9.0-12.0) sec INR (<1.2) ABG pH (7.35-7.45) ABG pCO2 (35-45) mmHg ABG pO2 (83-108) mmHg ABG Total CO2 (19-24) mmol/L ABG O2 Saturation (94-97) % ABG Hematocrit (34.0-46.0) % ABG Ionized Calcium (4.5-5.3) mg/dL ABG Glucose (75-99) mg/dL Hemoglobin (13.0-17.5) gm/dL Chloride (98-107) mmol/L Glucose (74-99) mg/dL POC Glucose (mg/dL) 118 H 113 H 136 H (75-99) mg/dL Calcium (8.4-10.2) mg/dL Alkaline Phosphatase (38-126) U/L Total Protein (6.3-8.2) g/dL Arterial Blood Glucose (75-99) mg/dL Crossmatch - Imaging and Cardiology Chest x-ray: report reviewed, image reviewed Assessment and Plan (1) Hypertension Current Visit: Yes Status: Chronic Code(s): I10 - ESSENTIAL (PRIMARY) HYPERTENSION SNOMED Code(s): 74728797 (2) Hyperlipidemia Current Visit: Yes Status: Chronic Code(s): E78.5 - HYPERLIPIDEMIA, UNSPECIFIED SNOMED Code(s): 58386069 (3) Osteoarthritis Current Visit: Yes Status: Chronic Code(s): M19.90 - UNSPECIFIED OSTEOARTHRITIS, UNSPECIFIED SITE SNOMED Code(s): 198488537 (4) Family history of heart disease Current Visit: Yes Status: Chronic Code(s): Z82.49 - FAMILY HX OF I[place]HE[place] HEART DIS AND OTH DIS OF THE CIRC SYS SNOMED Code(s): 722403948 (5) CAD (coronary artery disease) Current Visit: Yes Status: Chronic Code(s): I25.10 - ATHSCL HEART DISEASE OF [place] CORONARY ARTERY W/O ANG PCTRS SNOMED Code(s): 73557071 Plan: 1. Continue aspirin, statin, Plavix, beta blane. Will increase beta blane therapy as tolerated. 2. Wean O2 as tolerated. Encourage incentive spirometry so times every hour while awake. 3. Increase activity, ambulate in hallway. PT/OT/cardiac rehab following. 4. Insulin management per primary care service. 5. Bronchodilators per pulmonology. 6. Will monitor daily labs, chest x-rays. Electrolyte replacement per protocol. 7. Pain control with current medication regimen. Will add Toradol. 8. Will separate chest tubes in discontinue mediastinal chest tube. 9. Protonix for GI prophylaxis, subcu heparin, SCDs for DVT prophylaxis. 10. Will add home medication therapy. 11. More recommendations to follow. Time with Patient: Greater than 30
[2018-06-10] MEDS ORDERED: HYDROcodone/APAP 5-325MG 1 EACH TAB PO PRN (11:25)
[2018-06-10] MEDS ORDERED: BISACODYL 10 MG SUPP RECTAL PRN (11:26)
[2018-06-10 12:14] LABS: Glucose,Whole Blood 126 mg/dL (75-99)
[2018-06-10 13:34] VITALS: BMI 28.3
--- NOTE | 2018-06-10 14:55 | P.PN ---
Subjective Progress Note Date: 06/10/18 (Delayed charting patient seen at 0830) Principal diagnosis: chest pain Patient is an 78-year-old male past medical history of hypertension, dyslipidemia, arthritis, and GERD who presented for elective bypass surgery. On 06/09 he underwent a triple vessel bypass with JOLLY to the LAD, SVG to diagonal, SVG to OM1. He tolerated the procedure well. He is slightly hypothermic and returned to the ICU. He was extubated within 3 hours of returning from the OR. Patient seen and examined at bedside. He states his pain is well-controlled, no shortness of breath but chest is still slightly tight and it didn't breath is difficult, no nausea, no vomiting, no BM since surgery. No complaints currently. No acute events overnight. Objective - Vital Signs Vital signs: Vital Signs Temp 99.2 F 06/10/18 04:00 Pulse 77 06/10/18 14:00 Resp 27 H 06/10/18 14:00 BP 132/86 06/10/18 14:00 Pulse Ox 93 L 06/10/18 14:00 Intake & Output 06/09/18 06/10/18 06/10/18 18:59 06:59 18:59 Intake Total 777.964 7842.417 514.5 Output Total 1170 827 580 Balance -613.367 536.417 -65.5 Weight 82.1 kg 82.1 kg Intake: IV 527 1101.5 514.5 ACETAMINOPHEN IV (For NPO 100 200 ) 1,000 mg In Empty Bag 1 bag @ 400 mls/hr IVPB Q6HR [facility] Rx#:[id number] Co/CI 100 110 20 Lactated Ringers 1,000 ml 270 570 330 @ 20 mls/hr IV .Q24H [facility] Rx#:[id number] Magnesium Sulfate-D5w Pmx 100 100 1 gm In Dextrose/Water 1 100ml.bag @ 100 mls/hr IVPB Q1H [facility] Rx#: [id number] Nitroglycerin-D5w Pmx 50 13.5 1.5 mg In Dextrose/Water 1 250ml.bag @ 5 MCG/MIN 1.5 mls/hr IV .Q24H [facility] Rx#: [id number] pressure bags 54 108 63 Intake, IV Titration 29.633 171.917 Amount Clevidipine Butyrate 25 29.633 170.367 mg In Empty Bag 1 bag @ 1 MG/HR 2 mls/hr IV .Q24H [facility] Rx#:[id number] Insulin Regular 100 unit 1.55 In Sodium Chloride 0.9% 100 ml @ Per Protocol IV .Q0M [facility] Rx#:[id number] Oral 90 Output: Chest Tube Drainage 165 225 330 Left Pleural Chest Tube 30 Left Pleural/Mediastinal 165 225 300 Urine 705 602 250 Estimated Blood Loss 300 Other: Voiding Method Indwelling Catheter Indwelling Catheter ABP, PAP, CO, CI - Last Documented Arterial Blood Pressure 134/52 Pulmonary Artery Pressure 35/13 Cardiac Output 5.8 Cardiac Index 3.4 - Exam General: non toxic, mild distress, appears at stated age Derm: warm, dry Head: atraumatic, normocephalic, symmetric Eyes: EOMI, no lid lag, anicteric sclera Mouth: no lip lesion, mucus membranes moist Cardiovascular: S1S2 reg, no murmur, positive posterior tibial pulse bilateral, chest tube and mediastinal tube in place, Cordis in place Lungs: Increased breath sounds bilateral, no rhonchi, no rales , no accessory muscle use Abdominal: soft, nontender to palpation, no guarding, no appreciable organomegaly Ext: no gross muscle atrophy, no edema, no contractures Neuro: CN II-XI grossly intact, no focal neuro deficits Psych: Alert, oriented, appropriate affect - Labs CBC & Chem 7: 06/10/18 04:13 06/10/18 04:13 Labs: Abnormal Lab Results - Last 24 Hours (Table) 06/01/18 06/09/18 06/09/18 Range/Units 09:25 15:14 15:24 RBC (4.30-5.90) m/uL Hgb (13.0-17.5) gm/dL Hct (39.0-53.0) % Plt Count (150-450) k/uL Lymphocytes # (1.0-4.8) k/uL ABG pH 7.32 L (7.35-7.45) ABG pCO2 47 H (35-45) mmHg ABG Total CO2 26 H (19-24) mmol/L ABG O2 Saturation 97.7 H (94-97) % Chloride (98-107) mmol/L Glucose (74-99) mg/dL POC Glucose (mg/dL) 105 H (75-99) mg/dL Total Protein (6.3-8.2) g/dL Crossmatch See Detail 06/09/18 06/09/18 06/09/18 Range/Units 15:30 16:16 17:30 RBC 3.14 L (4.30-5.90) m/uL Hgb 9.9 L (13.0-17.5) gm/dL Hct 29.9 L (39.0-53.0) % Plt Count (150-450) k/uL Lymphocytes # (1.0-4.8) k/uL ABG pH (7.35-7.45) ABG pCO2 (35-45) mmHg ABG Total CO2 (19-24) mmol/L ABG O2 Saturation (94-97) % Chloride (98-107) mmol/L Glucose (74-99) mg/dL POC Glucose (mg/dL) 112 H 123 H (75-99) mg/dL Total Protein (6.3-8.2) g/dL Crossmatch 06/09/18 06/09/18 06/09/18 Range/Units 18:10 19:06 19:13 RBC 3.16 L (4.30-5.90) m/uL Hgb 9.9 L (13.0-17.5) gm/dL Hct 29.5 L (39.0-53.0) % Plt Count (150-450) k/uL Lymphocytes # 0.4 L (1.0-4.8) k/uL ABG pH (7.35-7.45) ABG pCO2 (35-45) mmHg ABG Total CO2 (19-24) mmol/L ABG O2 Saturation (94-97) % Chloride (98-107) mmol/L Glucose (74-99) mg/dL POC Glucose (mg/dL) 119 H 112 H (75-99) mg/dL Total Protein (6.3-8.2) g/dL Crossmatch 06/09/18 06/09/18 06/09/18 Range/Units 20:25 21:16 22:56 RBC (4.30-5.90) m/uL Hgb (13.0-17.5) gm/dL Hct (39.0-53.0) % Plt Count (150-450) k/uL Lymphocytes # (1.0-4.8) k/uL ABG pH (7.35-7.45) ABG pCO2 (35-45) mmHg ABG Total CO2 (19-24) mmol/L ABG O2 Saturation (94-97) % Chloride (98-107) mmol/L Glucose (74-99) mg/dL POC Glucose (mg/dL) 100 H 113 H 116 H (75-99) mg/dL Total Protein (6.3-8.2) g/dL Crossmatch 06/10/18 06/10/18 06/10/18 Range/Units 00:31 02:02 03:06 RBC (4.30-5.90) m/uL Hgb (13.0-17.5) gm/dL Hct (39.0-53.0) % Plt Count (150-450) k/uL Lymphocytes # (1.0-4.8) k/uL ABG pH (7.35-7.45) ABG pCO2 (35-45) mmHg ABG Total CO2 (19-24) mmol/L ABG O2 Saturation (94-97) % Chloride (98-107) mmol/L Glucose (74-99) mg/dL POC Glucose (mg/dL) 120 H 112 H 122 H (75-99) mg/dL Total Protein (6.3-8.2) g/dL Crossmatch 06/10/18 06/10/18 06/10/18 Range/Units 04:02 04:13 04:13 RBC 3.31 L (4.30-5.90) m/uL Hgb 10.1 L (13.0-17.5) gm/dL Hct 31.1 L (39.0-53.0) % Plt Count 140 L (150-450) k/uL Lymphocytes # 0.4 L (1.0-4.8) k/uL ABG pH (7.35-7.45) ABG pCO2 (35-45) mmHg ABG Total CO2 (19-24) mmol/L ABG O2 Saturation (94-97) % Chloride 108 H (98-107) mmol/L Glucose 113 H (74-99) mg/dL POC Glucose (mg/dL) 119 H (75-99) mg/dL Total Protein 5.7 L (6.3-8.2) g/dL Crossmatch 06/10/18 06/10/18 06/10/18 Range/Units 04:57 06:02 07:42 RBC (4.30-5.90) m/uL Hgb (13.0-17.5) gm/dL Hct (39.0-53.0) % Plt Count (150-450) k/uL Lymphocytes # (1.0-4.8) k/uL ABG pH (7.35-7.45) ABG pCO2 (35-45) mmHg ABG Total CO2 (19-24) mmol/L ABG O2 Saturation (94-97) % Chloride (98-107) mmol/L Glucose (74-99) mg/dL POC Glucose (mg/dL) 118 H 113 H 136 H (75-99) mg/dL Total Protein (6.3-8.2) g/dL Crossmatch 06/10/18 Range/Units 12:03 RBC (4.30-5.90) m/uL Hgb (13.0-17.5) gm/dL Hct (39.0-53.0) % Plt Count (150-450) k/uL Lymphocytes # (1.0-4.8) k/uL ABG pH (7.35-7.45) ABG pCO2 (35-45) mmHg ABG Total CO2 (19-24) mmol/L ABG O2 Saturation (94-97) % Chloride (98-107) mmol/L Glucose (74-99) mg/dL POC Glucose (mg/dL) 126 H (75-99) mg/dL Total Protein (6.3-8.2) g/dL Crossmatch Assessment and Plan Assessment: Coronary artery status post 3 vessel bypass -Management as per primary team -Aspirin, Lipitor, Plavix, Lopressor Anticipated and expected postoperative acute blood loss anemia and thrombocytopenia - Improved -Repeat CBC in a.m. -Transfuse as indicated, no current indication for transfusion Hypertension, controlled -Metoprolol resumed -Continue off of hydralazine and Cozaar, and Cardizem -Follow blood pressures Dyslipidemia - lipitor GERD - PPI Osteoarthritis -Pain control DVT prophylaxis: Heparin SC Discussed with: Nursing, Madison alonso, [employer] A total of 50 minutes was spent on the care of this complex patient more than 50 % of the time was spent in counseling and care coordination.
[2018-06-10] MEDS: MUPIROCIN 2% OINT 22 GM TUBE NASAL SCH ×2 (16:20→21:43)
[2018-06-10 17:11] LABS: Glucose,Whole Blood 128 mg/dL (75-99)
[2018-06-10] MEDS: LACTATED RINGERS 1,000 ML IV SCH (18:36)
[2018-06-10 19:43] LABS: Hemoglobin A1C 5.5 % (4.0-6.0)
[2018-06-10] MEDS: SENNOSIDES-DOCUSATE SODIUM 1 EACH TAB PO SCH (21:28)
[2018-06-10 21:42] LABS: Glucose,Whole Blood 159 mg/dL (75-99)
[2018-06-11] MEDS: KETOROLAC 30 MG/ML 1 ML VIAL IVP SCH ×4 (00:10→21:18)
[2018-06-11] MEDS ORDERED: METOPROLOL TARTRATE 5 MG/5 ML VIAL IVP PRN (01:08)
[2018-06-11] MEDS ORDERED: FUROSEMIDE 10 MG/ML 2 ML VIAL IV ONE (04:06)
[2018-06-11 05:04] LABS: Basophils % (A) 0 %; Eosinophils # (A) 0.1 k/uL (0-0.7); Eosinophils % (A) 2 %; HCT 29.2 % (39.0-53.0); HGB 9.7 gm/dL (13.0-17.5); Lymphocytes # (A) 0.7 k/uL (1.0-4.8); Lymphocytes % (A) 11 %; MCH 31.6 pg (25.0-35.0); MCHC 33.2 g/dL (31.0-37.0); MCV 95.1 fL (80.0-100.0); Mean Platelet Volume 7.5; Monocytes # (A) 0.4 k/uL (0-1.0); Monocytes % (A) 5 %; Neutrophils # (A) 5.2 k/uL (1.3-7.7); Neutrophils % (A) 80 %; Platelet Count 128 k/uL (150-450); RBC 3.07 m/uL (4.30-5.90); RDW 13.5 % (11.5-15.5); WBC 6.6 k/uL (3.8-10.6)
[2018-06-11 05:34] LABS: Albumin 3.3 g/dL (3.5-5.0); Calcium 8.5 mg/dL (8.4-10.2); Magnesium 2.5 mg/dL (1.6-2.3); Potassium 4.4 mmol/L (3.5-5.1); Total Bilirubin 0.6 mg/dL (0.2-1.3); Total Protein 5.4 g/dL (6.3-8.2)
[2018-06-11 07:11] LABS: Glucose,Whole Blood 135 mg/dL (75-99)
[2018-06-11] MEDS: IPRATROPIUM-ALBUTEROL 3 ML NEB INHALATION SCH ×4 (07:38→19:20)
[2018-06-11] MEDS: HEPARIN SODIUM,PORCINE 5,000 UNIT/ML 1 ML VIAL SQ SCH ×3 (08:00→21:21)
[2018-06-11] MEDS: INSULIN ASPART 100 UNIT/ML 1 ML 10 ML VIAL SQ SCH ×4 (08:02→21:26)
[2018-06-11] MEDS: PANTOPRAZOLE 40 MG TABLET PO SCH (08:02)
--- NOTE | 2018-06-11 08:14 | XR ---
EXAMINATION TYPE: XR chest 1V portable DATE OF EXAM: 06/11/2018 COMPARISON: 06/10/2018 INDICATION: Postoperative cardiac surgery TECHNIQUE: Single frontal view of the chest is obtained. FINDINGS: The heart size is mildly prominent. The pulmonary vasculature is normal. Left-sided chest tube is present. Right central venous catheter sheath is present. No pneumothorax is evident. IMPRESSION: 1. No acute pulmonary process. 2. Lines and catheters discussed above.
[2018-06-11] MEDS: AMIODARONE 200 MG TAB PO SCH ×2 (08:15→21:19)
[2018-06-11] MEDS: MUPIROCIN 2% OINT 22 GM TUBE NASAL SCH ×2 (08:16→21:19)
[2018-06-11] MEDS: ASPIRIN 325 MG TAB PO SCH (08:16)
[2018-06-11] MEDS: CLOPIDOGREL 75 MG TAB PO SCH (08:16)
[2018-06-11] MEDS: ATORVASTATIN 40 MG TAB PO SCH (08:16)
[2018-06-11] MEDS: METOPROLOL TARTRATE 12.5 MG TAB PO SCH ×2 (08:22→21:19)
[2018-06-11] MEDS: LACTATED RINGERS 1,000 ML IV SCH (08:23)
[2018-06-11] MEDS: HYDROcodone/APAP 5-325MG 1 EACH TAB PO PRN (08:40)
--- NOTE | 2018-06-11 08:50 | PN ---
PROGRESS NOTE Mr. Denton is an 78-year-old male status post coronary artery bypass grafting. He had an episode of atrial fibrillation last night back in sinus mechanism at this time. Hemodynamically stable. He denies any chest pain. He felt a palpitation yesterday. He has no dizziness. Hemodynamically, he is stable. There is no evidence of ventricular ectopic activity. He continued on aspirin once a day, Lipitor 40 mg daily, Plavix 75 mg daily, metoprolol tartrate 25 mg twice a day, and he received a bolus of IV Cardizem. PHYSICAL EXAMINATION: Blood pressure 116/60 with the heart rate in the 70s. LUNGS: Clear. HEART: Regular rate and rhythm. S1, S2. No S3. No rub. ABDOMEN: Soft, nontender. EXTREMITIES: No edema. LAB DATA: Lab data revealed BUN and creatinine 29 and 1.31, elevated compared to yesterday. Potassium 4.4. Hemoglobin 9.7. IMPRESSION: 1. Status post coronary artery bypass grafting. 2. Paroxysmal atrial fibrillation, back in sinus mechanism. 3. Hypertension. 4. Hyperlipidemia. 5. Acute renal injury. RECOMMENDATION: We will continue present therapy. I will follow his renal function. If he has any further episode of atrial fibrillation, patient may require chronic anticoagulation. MMODL / IJN: [id number] /
--- NOTE | 2018-06-11 10:02 | P.PN ---
Subjective Progress Note Date: 06/11/18 Principal diagnosis: Coronary artery disease, status post three-vessel bypass grafting, with JOLLY to LAD, SVG to PDA and SVG to the diagonal branch Pulmonary consultation dated 06/09/2018 78-year-old male with history of CAD, hypertension, hyperlipidemia, and DJD. The patient was recently evaluated for shortness of breath particularly with exercise. He apparently was being evaluated for possible hip replacement because of arthritis. For that reason he was seen by cardiology catheterization was done and showed severe three-vessel coronary artery disease. Today, he went to the OR and had a three-vessel bypass. The surgery was done by Dr. Blas Griffin. He had a JOLLY to LAD bypass, saphenous vein graft bypasses to the PDA and diagonal coronary artery. Currently, the patient just arrived back in the ICU. He is on the SIMV mode of ventilation with a rate of 12, tidal volume 500, FiO2 100%, and PEEP of 5. On those settings, his arterial blood gas showed a PaO2 greater than 400, a PaCO2 of 44 and a pH of 7.35. We added duo nebs every 4 [id number]. He is currently also on lactated Ringer's at 50 mL an hour, propofol at 15 mics per kilogram per minute , Cleveprex at 6 mg an hour and nitroglycerin at 5 mcg/m. Currently, chest x- ray is pending. On 06/10/2018 patient seen in follow-up in the intensive care unit, he is awake and alert, patient was extubated at 1545, patient extubated within 3 hours of OR exit time. This morning he seen in the intensive care unit, he is resting in bed, currently on 2 L per nasal cannula, and his pulse ox is 98%, he is afebrile, hemodynamically stable, his current IV fluids include LR at a rate of 50 ML per hour, nitroglycerin has been discontinued, cooperative has been discontinued as well. He is awake and alert, in no acute distress, lung sounds are clear to auscultation. Is working on his incentive spirometry, and ice 750 ML, his chest x-ray has been reviewed by Dr. Hope, showed small left plural effusion, and atelectasis. His labs have been reviewed, showed FVC of 7.8, hemoglobin 10.1, his electrolytes and renal profile are unremarkable. Patient is in sinus rhythm. Cardiac output and cardiac index is 6.3 and 3.4. He has a left pleural and mediastinal chest tube and there has been 390 mL of serosanguineous drainage in the Pleur-evac over the last 24 hours. Patient is nonoliguric. He will be started on clear liquid diet this morning. No acute events overnight, patient is doing very well. On 06/11/2018 patient seen in follow-up. This is postop day 2 status post three -vessel coronary artery bypass grafting, patient is doing very well, currently on room air, denies any acute distress, his pain is reasonably controlled, he sitting up in the recliner, he is awake alert and oriented 3. Pulse ox is 93% . He is working on his incentive spirometry, patient did go into A. fib with a controlled rate, he was started on amiodarone drip, which is currently infusing at rate of 1 mg per hour, maintenance IV fluids is lactated Ringer's at a rate of 20 ML per hour, patient did receive 20 of Lasix per cardiothoracic surgery, today's chest x-ray has been reviewed and shows no acute pulmonary process. Lung sounds reveal a few limited rales at the left lower posterior bases, rhonchi, no wheezing, no difficulty breathing. Patient has ambulated around the unit, tolerated activity very well. Today's labs have been reviewed, WBC 6.6, hemoglobin is 9.7, sodium is 134, potassium is 4.4, CO2 is 21, BUN is 29, creatinine is 1.3. Objective - Vital Signs Vital signs: Vital Signs Temp 97.9 F 06/11/18 04:00 Pulse 78 06/11/18 09:00 Resp 23 06/11/18 09:00 BP 146/84 06/11/18 09:00 Pulse Ox 93 L 06/11/18 09:00 Intake & Output 06/10/18 06/11/18 06/11/18 18:59 06:59 18:59 Intake Total 658.5 501.0 149.1 Output Total 780 960 680 Balance -121.5 -459.0 -530.9 Weight 82.1 kg 81.4 kg Intake: IV 658.5 501.0 149.1 Amiodarone 450 mg In 69.0 101.1 Dextrose 5% in Water 250 ml @ 1 MG/MIN 34.53 mls/ hr IV .Q7H31M PRN Rx#: [id number] Co/CI 20 Lactated Ringers 1,000 ml 450 360 30 @ 20 mls/hr IV .Q24H [facility] Rx#:[id number] Magnesium Sulfate-D5w Pmx 100 1 gm In Dextrose/Water 1 100ml.bag @ 100 mls/hr IVPB Q1H [facility] Rx#: [id number] Nitroglycerin-D5w Pmx 50 1.5 mg In Dextrose/Water 1 250ml.bag @ 5 MCG/MIN 1.5 mls/hr IV .Q24H [facility] Rx#: [id number] pressure bags 87 72 18 Output: Chest Tube Drainage 400 50 270 Left Pleural Chest Tube 100 50 270 Left Pleural/Mediastinal 300 Urine 380 910 410 Other: Voiding Method Indwelling Catheter Indwelling Catheter ABP, PAP, CO, CI - Last Documented Arterial Blood Pressure 145/65 Pulmonary Artery Pressure 35/13 Cardiac Output 5.8 Cardiac Index 3.0 - Exam GENERAL EXAM: Alert, pleasant 78-year-old white male, comfortable in no apparent distress. HEAD: Normocephalic/atraumatic. EYES: Normal reaction of pupils, equal size. Conjunctiva pink, sclera white. NOSE: Clear with pink turbinates. THROAT: No erythema or exudates. NECK: No masses, no JVD, no thyroid enlargement, no adenopathy. CHEST: No chest wall deformity. Symmetrical expansion. Sternal incision is clean dry and intact, approximated, sternum stable, there has been interval removal of the mediastinal chest tube, left pleural chest tube remains in place with small amount of serosanguineous drainage LUNGS: Equal air entry with few crackles crackles the left posterior base, wheeze, rhonchi or dullness. CVS: Regular rate and rhythm, normal S1 and S2, no gallops, no murmurs, no rubs ABDOMEN: Soft, nontender. No hepatosplenomegaly, normal bowel sounds, no guarding or rigidity. EXTREMITIES: No clubbing, no edema, no cyanosis, 2+ pulses and upper and lower extremities. MUSCULOSKELETAL: Muscle strength and tone normal. SPINE: No scoliosis or deformity SKIN: No rashes CENTRAL NERVOUS SYSTEM: Alert and oriented -3. No focal deficits, tone is normal in all 4 extremities. PSYCHIATRIC: Alert and oriented -3. Appropriate affect. Intact judgment and insight. - Labs CBC & Chem 7: 06/11/18 04:45 06/11/18 04:45 Labs: Abnormal Lab Results - Last 24 Hours (Table) 06/01/18 06/10/18 06/10/18 Range/Units 09:25 12:03 16:59 RBC (4.30-5.90) m/uL Hgb (13.0-17.5) gm/dL Hct (39.0-53.0) % Plt Count (150-450) k/uL Lymphocytes # (1.0-4.8) k/uL Sodium (137-145) mmol/L Carbon Dioxide (22-30) mmol/L BUN (9-20) mg/dL Creatinine (0.66-1.25) mg/dL Glucose (74-99) mg/dL POC Glucose (mg/dL) 126 H 128 H (75-99) mg/dL Magnesium (1.6-2.3) mg/dL Total Protein (6.3-8.2) g/dL Albumin (3.5-5.0) g/dL Crossmatch See Detail 06/10/18 06/11/18 06/11/18 Range/Units 21:30 04:45 04:45 RBC 3.07 L (4.30-5.90) m/uL Hgb 9.7 L (13.0-17.5) gm/dL Hct 29.2 L (39.0-53.0) % Plt Count 128 L (150-450) k/uL Lymphocytes # 0.7 L (1.0-4.8) k/uL Sodium 134 L (137-145) mmol/L Carbon Dioxide 21 L (22-30) mmol/L BUN 29 H (9-20) mg/dL Creatinine 1.31 H (0.66-1.25) mg/dL Glucose 173 H (74-99) mg/dL POC Glucose (mg/dL) 159 H (75-99) mg/dL Magnesium 2.5 H (1.6-2.3) mg/dL Total Protein 5.4 L (6.3-8.2) g/dL Albumin 3.3 L (3.5-5.0) g/dL Crossmatch 06/11/18 Range/Units 07:00 RBC (4.30-5.90) m/uL Hgb (13.0-17.5) gm/dL Hct (39.0-53.0) % Plt Count (150-450) k/uL Lymphocytes # (1.0-4.8) k/uL Sodium (137-145) mmol/L Carbon Dioxide (22-30) mmol/L BUN (9-20) mg/dL Creatinine (0.66-1.25) mg/dL Glucose (74-99) mg/dL POC Glucose (mg/dL) 135 H (75-99) mg/dL Magnesium (1.6-2.3) mg/dL Total Protein (6.3-8.2) g/dL Albumin (3.5-5.0) g/dL Crossmatch Assessment and Plan Plan: Postop day # 2, status post three-vessel bypass grafting, with JOLLY to LAD, SVG to PDA, and SVG to diagonal. Routine postoperative ventilator management Atrial fibrillation, an expected outcome of bypass surgery, currently on amiodarone drip at 1 mg per hour. Rate is controlled History of CAD History of DJD History of hypertension History of hyperlipidemia History of vitamin D deficiency Plan: Continue with current medical treatment, continue encouraging deep breathing and coughing, encourage spirometry use, ambulation. Chest x-ray was reviewed by Dr. Dr. Hope, showed no acute pulmonary process. Patient did go into A. fib last night with a controlled rate, continues on amiodarone drip. Remains hemodynamically stable, labs have been reviewed, there has been slight worsening of patient's renal profile. We'll continue to monitor in the intensive care unit today. I performed a history & physical examination of the patient and discussed their management with my nurse practitioner, Reyna Loredo. I reviewed the nurse practitioner's note and agree with the documented findings and plan of care. Lung sounds are diminished breath sounds. The findings and the impression was discussed with the patient. I attest to the documentation by the nurse practitioner. Time with Patient: Greater than 30
[2018-06-11 12:11] LABS: Glucose,Whole Blood 156 mg/dL (75-99)
--- NOTE | 2018-06-11 14:35 | P.PN ---
Subjective Progress Note Date: 06/11/18 Principal diagnosis: chest pain Patient is an 78-year-old male past medical history of hypertension, dyslipidemia, arthritis, and GERD who presented for elective bypass surgery. On 06/09 he underwent a triple vessel bypass with JOLLY to the LAD, SVG to diagonal, SVG to OM1. He tolerated the procedure well. He is slightly hypothermic and returned to the ICU. He was extubated within 3 hours of returning from the OR. He has been progressing well. Patient seen and examined at bedside. Pain is well controlled, still feeling slightly short of breath with tightness. No nausea, vomiting, or diarrhea. Was up and walking in the hallways yesterday. Objective - Vital Signs Vital signs: Vital Signs Temp 97.9 F 06/11/18 04:00 Pulse 78 06/11/18 09:00 Resp 23 06/11/18 09:00 BP 146/84 06/11/18 09:00 Pulse Ox 93 L 06/11/18 09:00 Intake & Output 06/10/18 06/11/18 06/11/18 18:59 06:59 18:59 Intake Total 658.5 501.0 149.1 Output Total 780 960 680 Balance -121.5 -459.0 -530.9 Weight 82.1 kg 81.4 kg Intake: IV 658.5 501.0 149.1 Amiodarone 450 mg In 69.0 101.1 Dextrose 5% in Water 250 ml @ 1 MG/MIN 34.53 mls/ hr IV .Q7H31M PRN Rx#: [id number] Co/CI 20 Lactated Ringers 1,000 ml 450 360 30 @ 20 mls/hr IV .Q24H [facility] Rx#:[id number] Magnesium Sulfate-D5w Pmx 100 1 gm In Dextrose/Water 1 100ml.bag @ 100 mls/hr IVPB Q1H [facility] Rx#: [id number] Nitroglycerin-D5w Pmx 50 1.5 mg In Dextrose/Water 1 250ml.bag @ 5 MCG/MIN 1.5 mls/hr IV .Q24H [facility] Rx#: [id number] pressure bags 87 72 18 Output: Chest Tube Drainage 400 50 270 Left Pleural Chest Tube 100 50 270 Left Pleural/Mediastinal 300 Urine 380 910 410 Other: Voiding Method Indwelling Catheter Indwelling Catheter ABP, PAP, CO, CI - Last Documented Arterial Blood Pressure 145/65 Pulmonary Artery Pressure 35/13 Cardiac Output 5.8 Cardiac Index 3.0 - Exam General: non toxic,no distress, appears at stated age Derm: warm, dry Head: atraumatic, normocephalic, symmetric Eyes: EOMI, no lid lag, anicteric sclera Mouth: no lip lesion, mucus membranes moist Cardiovascular: S1S2 reg, no murmur, positive posterior tibial pulse bilateral, chest tube tube in place, CVC in place Lungs: Decreased breath sounds bilateral, no rhonchi, no rales , no accessory muscle use Abdominal: soft, nontender to palpation, no guarding, no appreciable organomegaly Ext: no gross muscle atrophy, no edema, no contractures Neuro: CN II-XI grossly intact, no focal neuro deficits Psych: Alert, oriented, appropriate affect - Labs CBC & Chem 7: 06/11/18 04:45 06/11/18 04:45 Labs: Abnormal Lab Results - Last 24 Hours (Table) 06/01/18 06/10/18 06/10/18 Range/Units 09:25 12:03 16:59 RBC (4.30-5.90) m/uL Hgb (13.0-17.5) gm/dL Hct (39.0-53.0) % Plt Count (150-450) k/uL Lymphocytes # (1.0-4.8) k/uL Sodium (137-145) mmol/L Carbon Dioxide (22-30) mmol/L BUN (9-20) mg/dL Creatinine (0.66-1.25) mg/dL Glucose (74-99) mg/dL POC Glucose (mg/dL) 126 H 128 H (75-99) mg/dL Magnesium (1.6-2.3) mg/dL Total Protein (6.3-8.2) g/dL Albumin (3.5-5.0) g/dL Crossmatch See Detail 06/10/18 06/11/18 06/11/18 Range/Units 21:30 04:45 04:45 RBC 3.07 L (4.30-5.90) m/uL Hgb 9.7 L (13.0-17.5) gm/dL Hct 29.2 L (39.0-53.0) % Plt Count 128 L (150-450) k/uL Lymphocytes # 0.7 L (1.0-4.8) k/uL Sodium 134 L (137-145) mmol/L Carbon Dioxide 21 L (22-30) mmol/L BUN 29 H (9-20) mg/dL Creatinine 1.31 H (0.66-1.25) mg/dL Glucose 173 H (74-99) mg/dL POC Glucose (mg/dL) 159 H (75-99) mg/dL Magnesium 2.5 H (1.6-2.3) mg/dL Total Protein 5.4 L (6.3-8.2) g/dL Albumin 3.3 L (3.5-5.0) g/dL Crossmatch 06/11/18 Range/Units 07:00 RBC (4.30-5.90) m/uL Hgb (13.0-17.5) gm/dL Hct (39.0-53.0) % Plt Count (150-450) k/uL Lymphocytes # (1.0-4.8) k/uL Sodium (137-145) mmol/L Carbon Dioxide (22-30) mmol/L BUN (9-20) mg/dL Creatinine (0.66-1.25) mg/dL Glucose (74-99) mg/dL POC Glucose (mg/dL) 135 H (75-99) mg/dL Magnesium (1.6-2.3) mg/dL Total Protein (6.3-8.2) g/dL Albumin (3.5-5.0) g/dL Crossmatch Assessment and Plan Assessment: Coronary artery status post 3 vessel bypass -Management as per primary team -Aspirin, Lipitor, Plavix, Lopressor Anticipated and expected postoperative acute blood loss anemia and thrombocytopenia, stable -Repeat CBC in a.m. -Transfuse as indicated, no current indication for transfusion Hypertension, controlled -Metoprolol resumed -Continue off of hydralazine and Cozaar, and Cardizem -Follow blood pressures A fib - controlled - amio transitioned to PO - tele Dyslipidemia - lipitor GERD - PPI Osteoarthritis -Pain control DVT prophylaxis: Heparin SC Discussed with: Nursing A total of 25 minutes was spent on the care of this complex patient more than 50 % of the time was spent in counseling and care coordination.
[2018-06-11 17:23] LABS: Glucose,Whole Blood 127 mg/dL (75-99)
--- NOTE | 2018-06-11 17:35 | P.PN ---
Subjective Progress Note Date: 06/11/18 Principal diagnosis: Coronary artery disease. previous medical history of hypertension, hyperlipidemia, arthritis, and family history of coronary artery disease. POD #2 off-pump coronary artery bypass grafting 3 with the left internal mammary artery to the left anterior descending artery and a reverse greater saphenous vein graft to the first obtuse marginal coronary artery and diagonal coronary artery with endovascular vein harvest of the left thigh greater saphenous vein and intraoperative transesophageal echocardiogram by anesthesia. The Patient is currently sitting up to the bedside chair and is in no acute distress. He states pain is well-controlled, denies shortness of breath. No new complaints. He reports that he ambulated in the ICU [facility] 3 times yesterday with minimal assistance. The patient's , daughter and son are at his bedside. Patient had an episode of atrial fibrillation this morning, he was placed on amiodarone drip per protocol. Currently his bedside monitor is showing normal sinus rhythm heart rate 78. Objective - Vital Signs Vital signs: Vital Signs Temp 97.9 F 06/11/18 04:00 Pulse 71 06/11/18 16:00 Resp 23 06/11/18 16:00 BP 139/78 06/11/18 16:00 Pulse Ox 96 06/11/18 16:00 Intake & Output 06/10/18 06/11/18 06/11/18 18:59 06:59 18:59 Intake Total 658.5 501.0 366.9 Output Total 780 960 955 Balance -121.5 -459.0 -588.1 Weight 82.1 kg 81.4 kg 81.4 kg Intake: IV 658.5 501.0 366.9 Amiodarone 450 mg In 69.0 200.9 Dextrose 5% in Water 250 ml @ 1 MG/MIN 34.53 mls/ hr IV .Q7H31M PRN Rx#: [id number] Co/CI 20 Lactated Ringers 1,000 ml 450 360 130 @ 20 mls/hr IV .Q24H [facility] Rx#:[id number] Magnesium Sulfate-D5w Pmx 100 1 gm In Dextrose/Water 1 100ml.bag @ 100 mls/hr IVPB Q1H [facility] Rx#: [id number] Nitroglycerin-D5w Pmx 50 1.5 mg In Dextrose/Water 1 250ml.bag @ 5 MCG/MIN 1.5 mls/hr IV .Q24H [facility] Rx#: [id number] pressure bags 87 72 36 Output: Chest Tube Drainage 400 50 380 Left Pleural Chest Tube 100 50 380 Left Pleural/Mediastinal 300 Urine 380 910 575 Other: Voiding Method Indwelling Catheter Indwelling Catheter Indwelling Catheter ABP, PAP, CO, CI - Last Documented Arterial Blood Pressure 119/50 Pulmonary Artery Pressure 35/13 Cardiac Output 5.8 Cardiac Index 3.0 - Constitutional General appearance: Present: cooperative, no acute distress, obese - Respiratory Details: Lung sounds are essentially clear throughout, diminished to his bilateral bases. Respirations are symmetrical and nonlabored. Oxygen saturation are 96% on room air. He is achieving 1000 mL on his incentive spirometry with encouragement. Left pleural chest tube remains in place to low continuous wall suction -20 cm H2O. Draining thin serosanguineous drainage. 150 mL output the last 8 hours, 410 mL output in the last 24 hours. No air leak is present. - Cardiovascular Details: Regular rhythm and rate. S1 and S2 present, negative for S3, gallop or murmur. Sternum is stable. Atrial and ventricular epicardial pacemaker wires present in grounded. No edema present. Heart hugger is in place and he is demonstrating appropriate use. Knee-high URMILA hose and sequential compression devices in place to his bilateral lower extremities. Right IJ Cordis in place and functioning. Right radial arterial line in place and functioning. - Gastrointestinal Gastrointestinal Comment(s): Abdomen is soft, nontender and nondistended. Active bowel sounds to all 4 abdominal quadrants. Tolerating oral intake. Passing flatus. - Genitourinary Genitourinary Comment(s): Moseley catheter for accurate I&O. Draining clear yellow urine. 900 mL output in the last 8 hours. - Integumentary Integumentary Comment(s): Skin is warm and dry. No clubbing or cyanosis present. Midline sternal incision clean dry and approximated. Left lower extremity EVH site clean dry and approximated. No drainage or redness present. - Neurologic Neurologic: Present: CNII-XII intact - Musculoskeletal Musculoskeletal: Present: gait normal, strength equal bilaterally - Psychiatric Psychiatric: Present: A&O x's 3, appropriate affect, intact judgment & insight - Allied health notes Allied health notes reviewed: nursing - Labs CBC & Chem 7: 06/11/18 04:45 06/11/18 04:45 Labs: Abnormal Lab Results - Last 24 Hours (Table) 06/01/18 06/10/18 06/11/18 Range/Units 09:25 21:30 04:45 RBC (4.30-5.90) m/uL Hgb (13.0-17.5) gm/dL Hct (39.0-53.0) % Plt Count (150-450) k/uL Lymphocytes # (1.0-4.8) k/uL Sodium 134 L (137-145) mmol/L Carbon Dioxide 21 L (22-30) mmol/L BUN 29 H (9-20) mg/dL Creatinine 1.31 H (0.66-1.25) mg/dL Glucose 173 H (74-99) mg/dL POC Glucose (mg/dL) 159 H (75-99) mg/dL Magnesium 2.5 H (1.6-2.3) mg/dL Total Protein 5.4 L (6.3-8.2) g/dL Albumin 3.3 L (3.5-5.0) g/dL Crossmatch See Detail 06/11/18 06/11/18 06/11/18 Range/Units 04:45 07:00 11:59 RBC 3.07 L (4.30-5.90) m/uL Hgb 9.7 L (13.0-17.5) gm/dL Hct 29.2 L (39.0-53.0) % Plt Count 128 L (150-450) k/uL Lymphocytes # 0.7 L (1.0-4.8) k/uL Sodium (137-145) mmol/L Carbon Dioxide (22-30) mmol/L BUN (9-20) mg/dL Creatinine (0.66-1.25) mg/dL Glucose (74-99) mg/dL POC Glucose (mg/dL) 135 H 156 H (75-99) mg/dL Magnesium (1.6-2.3) mg/dL Total Protein (6.3-8.2) g/dL Albumin (3.5-5.0) g/dL Crossmatch - Imaging and Cardiology Chest x-ray: report reviewed, image reviewed Assessment and Plan (1) CAD (coronary artery disease) Current Visit: Yes Status: Chronic Code(s): I25.10 - ATHSCL HEART DISEASE OF [place] CORONARY ARTERY W/O ANG PCTRS SNOMED Code(s): 13455091 (2) Family history of heart disease Current Visit: Yes Status: Chronic Code(s): Z82.49 - FAMILY HX OF [place] HEART DIS AND OTH DIS OF THE CIRC SYS SNOMED Code(s): 017269892 (3) Hyperlipidemia Current Visit: Yes Status: Chronic Code(s): E78.5 - HYPERLIPIDEMIA, UNSPECIFIED SNOMED Code(s): 51687293 (4) Hypertension Current Visit: Yes Status: Chronic Code(s): I10 - ESSENTIAL (PRIMARY) HYPERTENSION SNOMED Code(s): 75688172 (5) Osteoarthritis Current Visit: Yes Status: Chronic Code(s): M19.90 - UNSPECIFIED OSTEOARTHRITIS, UNSPECIFIED SITE SNOMED Code(s): 069585387 Plan: 1. Continue aspirin, statin, Plavix, and beta blane. We will increase his beta blane therapy as tolerated. 2. Wean O2 as tolerated. Encourage incentive spirometry so times every hour while awake. 3. Increase activity, ambulate in hallway. PT/OT/cardiac rehab following. 4. Insulin management per primary care service. 5. Bronchodilators per pulmonology Management . 6. Will monitor daily labs, chest x-rays. Electrolyte replacement per protocol. 7. Pain control with current medication regimen. Will add Toradol. 8. We will keep his left pleural chest tube in place today due to the amount of drainage present in the last 24 hours. We will discontinue his left pleural chest tube tomorrow a.m. . 9. Protonix for GI prophylaxis, subcu heparin, SCDs for DVT prophylaxis. 10. Discontinue his Moseley catheter, right IJ Cordis, and right radial arterial line. 11. Transferred to 3 self selective care unit when there is a bed available. 12. Discontinue amiodarone drip, start amiodarone 400 mg by mouth twice a day for atrial fibrillation prophylaxis. 13. More recommendations to follow based on patient's clinical course. Time with Patient: Greater than 30
[2018-06-11] MEDS: SENNOSIDES-DOCUSATE SODIUM 1 EACH TAB PO SCH (21:19)
[2018-06-11 21:33] LABS: Glucose,Whole Blood 136 mg/dL (75-99)
[2018-06-12] MEDS: KETOROLAC 30 MG/ML 1 ML VIAL IVP SCH ×2 (02:37→05:34)
[2018-06-12 05:19] LABS: Basophils % (A) 0 %; Eosinophils # (A) 0.5 k/uL (0-0.7); Eosinophils % (A) 9 %; HCT 28.1 % (39.0-53.0); HGB 9.3 gm/dL (13.0-17.5); Lymphocytes # (A) 0.9 k/uL (1.0-4.8); Lymphocytes % (A) 15 %; MCH 31.6 pg (25.0-35.0); MCHC 33.2 g/dL (31.0-37.0); MCV 95.1 fL (80.0-100.0); Mean Platelet Volume 7.6; Monocytes # (A) 0.4 k/uL (0-1.0); Monocytes % (A) 6 %; Neutrophils % (A) 66 %; Platelet Count 146 k/uL (150-450); RBC 2.95 m/uL (4.30-5.90); RDW 13.3 % (11.5-15.5)
[2018-06-12 05:24] LABS: Albumin 3.3 g/dL (3.5-5.0); Calcium 8.9 mg/dL (8.4-10.2); Potassium 4.3 mmol/L (3.5-5.1); Total Bilirubin 0.6 mg/dL (0.2-1.3); Total Protein 5.5 g/dL (6.3-8.2)
[2018-06-12] MEDS: HEPARIN SODIUM,PORCINE 5,000 UNIT/ML 1 ML VIAL SQ SCH ×3 (05:34→21:12)
--- NOTE | 2018-06-12 06:03 | XR ---
EXAMINATION TYPE: XR chest 1V portable DATE OF EXAM: 06/12/2018 HISTORY: Postop CABG. REFERENCE: Previous study dated 06/11/2018. FINDINGS: There has been a midline sternotomy. A left pleural drain remains in place. The patient's r ight internal jugular sheath is been removed. The heart is enlarged. There is mild, left basilar airspace disease and to lesser extent right basila r airspace disease. No significant pleural fluid is seen. IMPRESSION: 1. CARDIOMEGALY. 2. BIBASILAR AIRSPACE DISEASE.
[2018-06-12 07:13] LABS: Glucose,Whole Blood 154 mg/dL (75-99)
[2018-06-12] MEDS: IPRATROPIUM-ALBUTEROL 3 ML NEB INHALATION SCH ×4 (08:04→19:13)
[2018-06-12] MEDS: INSULIN ASPART 100 UNIT/ML 1 ML 10 ML VIAL SQ SCH ×4 (08:36→21:14)
[2018-06-12] MEDS: METOPROLOL TARTRATE 12.5 MG TAB PO SCH ×2 (08:37→21:12)
[2018-06-12] MEDS: ASPIRIN 325 MG TAB PO SCH (08:37)
[2018-06-12] MEDS: PANTOPRAZOLE 40 MG TABLET PO SCH (08:38)
[2018-06-12] MEDS: ATORVASTATIN 40 MG TAB PO SCH (08:38)
[2018-06-12] MEDS: CLOPIDOGREL 75 MG TAB PO SCH (08:40)
[2018-06-12] MEDS: AMIODARONE 200 MG TAB PO SCH ×2 (08:40→21:13)
[2018-06-12] MEDS: MUPIROCIN 2% OINT 22 GM TUBE NASAL SCH ×2 (08:42→21:14)
[2018-06-12] MEDS ORDERED: ACETAMINOPHEN TAB 325 MG TAB PO PRN ×2 (08:59)
[2018-06-12] MEDS: MAGNESIUM HYDROXIDE 2,400 MG/10 ML CUP PO PRN ×2 (09:06→14:59)
--- NOTE | 2018-06-12 09:36 | P.PN ---
Subjective Progress Note Date: 06/12/18 Principal diagnosis: Coronary artery disease. previous medical history of hypertension, hyperlipidemia, arthritis, and family history of coronary artery disease. POD #3 off-pump coronary artery bypass grafting 3 with the left internal mammary artery to the left anterior descending artery and reverse saphenous vein graft to the first obtuse marginal and diagonal branches with endovascular vein harvest of the left thigh and intraoperative transesophageal echocardiogram by anesthesia. Postoperative paroxysmal atrial fibrillation, an unexpected but potential outcome of surgery. Patient is currently sitting up in a recliner in no acute distress. Denies pain , shortness of breath. No new complaints. Did have an episode of atrial fibrillation for a short amount of time yesterday, was treated with IV amiodarone with conversion to normal sinus rhythm. Patient has been ambulating in the hallway without difficulty on room air. Objective - Vital Signs Vital signs: Vital Signs Temp 98.2 F 06/12/18 08:00 Pulse 77 06/12/18 08:16 Resp 19 06/12/18 08:00 BP 149/78 06/12/18 08:00 Pulse Ox 97 06/12/18 08:06 Intake & Output 06/11/18 06/12/18 06/12/18 18:59 06:59 18:59 Intake Total 366.9 200 Output Total 955 205 Balance -588.1 -5 Weight 81.4 kg 81.4 kg Intake: IV 366.9 200 Amiodarone 450 mg In 200.9 Dextrose 5% in Water 250 ml @ 1 MG/MIN 34.53 mls/ hr IV .Q7H31M PRN Rx#: [id number] Lactated Ringers 1,000 ml 130 200 @ 20 mls/hr IV .Q24H DORY Rx#:[id number] pressure bags 36 Output: Chest Tube Drainage 380 30 Left Pleural Chest Tube 380 30 Urine 575 175 Other: Voiding Method Indwelling Catheter Urinal ABP, PAP, CO, CI - Last Documented Arterial Blood Pressure 119/50 Pulmonary Artery Pressure 35/13 Cardiac Output 5.8 Cardiac Index 3.0 - Constitutional General appearance: Present: cooperative, no acute distress - Respiratory Details: Lungs sounds diminished bilaterally. Respirations even, nonlabored. Currently on room air with oxygen saturations 97%. Able to achieve 1500 mL on his incentive spirometry. Effective cough. Left pleural chest tube to continuous wall suction, 30 mL serosanguineous drainage overnight, 200 mL since surgery, no air leaks present. - Cardiovascular Details: S1, S2 present, positive rub. Regular rate and rhythm, sinus rhythm on telemetry. Sternum stable. A/V epicardial pacemaker wires present, grounded. Palpable peripheral pulses bilaterally. No edema present. No calf pain or tenderness noted. Heart hugger in place with patient demonstrating appropriate use. Antiembolism stockings, SCDs present. - Gastrointestinal Gastrointestinal Comment(s): Abdomen soft, nontender, nondistended. Active bowel sounds present 4 quadrants. Tolerating diet. Positive flatus, negative bowel movement. - Genitourinary Genitourinary Comment(s): Moseley discontinued yesterday. Patient voiding per urinal. - Integumentary Integumentary Comment(s): Skin is warm and dry with evidence of good perfusion. Anterior chest incision well approximated covered with dry intact dressing. Left lower extremity EVH site well approximated. - Neurologic Neurologic: Present: CNII-XII intact - Musculoskeletal Musculoskeletal: Present: gait normal, strength equal bilaterally - Psychiatric Psychiatric: Present: A&O x's 3, appropriate affect, intact judgment & insight - Allied health notes Allied health notes reviewed: nursing - Labs CBC & Chem 7: 06/12/18 04:36 06/12/18 04:36 Labs: Abnormal Lab Results - Last 24 Hours (Table) 06/11/18 06/11/18 06/11/18 Range/Units 11:59 17:12 21:21 RBC (4.30-5.90) m/uL Hgb (13.0-17.5) gm/dL Hct (39.0-53.0) % Plt Count (150-450) k/uL Lymphocytes # (1.0-4.8) k/uL Sodium (137-145) mmol/L BUN (9-20) mg/dL Creatinine (0.66-1.25) mg/dL Glucose (74-99) mg/dL POC Glucose (mg/dL) 156 H 127 H 136 H (75-99) mg/dL Total Protein (6.3-8.2) g/dL Albumin (3.5-5.0) g/dL 06/12/18 06/12/18 06/12/18 Range/Units 04:36 04:36 07:01 RBC 2.95 L (4.30-5.90) m/uL Hgb 9.3 L (13.0-17.5) gm/dL Hct 28.1 L (39.0-53.0) % Plt Count 146 L (150-450) k/uL Lymphocytes # 0.9 L (1.0-4.8) k/uL Sodium 136 L (137-145) mmol/L BUN 35 H (9-20) mg/dL Creatinine 1.57 H (0.66-1.25) mg/dL Glucose 100 H (74-99) mg/dL POC Glucose (mg/dL) 154 H (75-99) mg/dL Total Protein 5.5 L (6.3-8.2) g/dL Albumin 3.3 L (3.5-5.0) g/dL - Imaging and Cardiology Chest x-ray: report reviewed, image reviewed Assessment and Plan (1) Hypertension Current Visit: Yes Status: Chronic Code(s): I10 - ESSENTIAL (PRIMARY) HYPERTENSION SNOMED Code(s): 15548121 (2) Hyperlipidemia Current Visit: Yes Status: Chronic Code(s): E78.5 - HYPERLIPIDEMIA, UNSPECIFIED SNOMED Code(s): 05623440 (3) Osteoarthritis Current Visit: Yes Status: Chronic Code(s): M19.90 - UNSPECIFIED OSTEOARTHRITIS, UNSPECIFIED SITE SNOMED Code(s): 324696839 (4) Family history of heart disease Current Visit: Yes Status: Chronic Code(s): Z82.49 - FAMILY HX OF ISCHEM HEART DIS AND OTH DIS OF THE CIRC SYS SNOMED Code(s): 262859831 (5) CAD (coronary artery disease) Current Visit: Yes Status: Chronic Code(s): I25.10 - ATHSCL HEART DISEASE OF [place] CORONARY ARTERY W/O ANG PCTRS SNOMED Code(s): 58145919 Plan: 1. Continue aspirin, statin, Plavix, beta blane. Will increase beta blane therapy as tolerated. 2. Continue amiodarone for A. fib prophylaxis. No anticoagulation unless in A. fib greater than 24 hours. 3. Encourage incentive spirometry 10 times every hour while awake. 4. Increase activity, ambulate in hallway. PT/OT/cardiac rehab following. 5. Insulin management per primary care service. 6. Bronchodilators per pulmonology. 7. Will monitor daily labs, chest x-rays. Electrolyte replacement per protocol. Avoid nephrotoxins. 8. Pain control with current medication regimen. 9. Will discontinue left pleural chest tube. 10. Protonix for GI prophylaxis, subcu heparin, SCDs for DVT prophylaxis. 11. Transfer orders for 3 S. cardiac stepdown unit placed yesterday, may transfer when bed available. 12. Discharge planning in progress. Anticipate discharge to home with home care in the next 24-48 hours. 13. More recommendations to follow. Time with Patient: Greater than 30
--- NOTE | 2018-06-12 10:59 | P.PN ---
Subjective Progress Note Date: 06/12/18 Principal diagnosis: Coronary artery disease status post three-vessel bypass grafting utilizing a JOLLY to the LAD, SVG to PDA and SVG to the diagonal. Pulmonary consultation dated 06/09/2018 78-year-old male with history of CAD, hypertension, hyperlipidemia, and DJD. The patient was recently evaluated for shortness of breath particularly with exercise. He apparently was being evaluated for possible hip replacement because of arthritis. For that reason he was seen by cardiology catheterization was done and showed severe three-vessel coronary artery disease. Today, he went to the OR and had a three-vessel bypass. The surgery was done by Dr. Blas Griffin. He had a JOLLY to LAD bypass, saphenous vein graft bypasses to the PDA and diagonal coronary artery. Currently, the patient just arrived back in the ICU. He is on the SIMV mode of ventilation with a rate of 12, tidal volume 500, FiO2 100%, and PEEP of 5. On those settings, his arterial blood gas showed a PaO2 greater than 400, a PaCO2 of 44 and a pH of 7.35. We added duo nebs every 4 [id number]. He is currently also on lactated Ringer's at 50 mL an hour, propofol at 15 mics per kilogram per minute , Cleveprex at 6 mg an hour and nitroglycerin at 5 mcg/m. Currently, chest x- ray is pending. On 06/10/2018 patient seen in follow-up in the intensive care unit, he is awake and alert, patient was extubated at 1545, patient extubated within 3 hours of OR exit time. This morning he seen in the intensive care unit, he is resting in bed, currently on 2 L per nasal cannula, and his pulse ox is 98%, he is afebrile, hemodynamically stable, his current IV fluids include LR at a rate of 50 ML per hour, nitroglycerin has been discontinued, cooperative has been discontinued as well. He is awake and alert, in no acute distress, lung sounds are clear to auscultation. Is working on his incentive spirometry, and ice 750 ML, his chest x-ray has been reviewed by Dr. Hope, showed small left plural effusion, and atelectasis. His labs have been reviewed, showed FVC of 7.8, hemoglobin 10.1, his electrolytes and renal profile are unremarkable. Patient is in sinus rhythm. Cardiac output and cardiac index is 6.3 and 3.4. He has a left pleural and mediastinal chest tube and there has been 390 mL of serosanguineous drainage in the Pleur-evac over the last 24 hours. Patient is nonoliguric. He will be started on clear liquid diet this morning. No acute events overnight, patient is doing very well. On 06/11/2018 patient seen in follow-up. This is postop day 2 status post three -vessel coronary artery bypass grafting, patient is doing very well, currently on room air, denies any acute distress, his pain is reasonably controlled, he sitting up in the recliner, he is awake alert and oriented 3. Pulse ox is 93% . He is working on his incentive spirometry, patient did go into A. fib with a controlled rate, he was started on amiodarone drip, which is currently infusing at rate of 1 mg per hour, maintenance IV fluids is lactated Ringer's at a rate of 20 ML per hour, patient did receive 20 of Lasix per cardiothoracic surgery, today's chest x-ray has been reviewed and shows no acute pulmonary process. Lung sounds reveal a few limited rales at the left lower posterior bases, rhonchi, no wheezing, no difficulty breathing. Patient has ambulated around the unit, tolerated activity very well. Today's labs have been reviewed, WBC 6.6, hemoglobin is 9.7, sodium is 134, potassium is 4.4, CO2 is 21, BUN is 29, creatinine is 1.3. The patient is seen today 06/12/2018 in follow-up in the intensive care unit. He is currently sitting up in a chair at the bedside. He is awake and alert in no acute distress. His pain is well controlled. He continues to work well with the incentive spirometer. Chest x-ray reveals evidence of cardiomegaly and bibasilar airspace disease. Left pleural chest tube remains in place. He is currently maintaining good O2 saturations in the mid 90s on room air. He's afebrile. Hemodynamically stable. White count 6.0. Hemoglobin 9.3. Creatinine 1.57. Objective - Vital Signs Vital signs: Vital Signs Temp 98.2 F 06/12/18 08:00 Pulse 77 06/12/18 08:16 Resp 19 06/12/18 08:00 BP 149/78 06/12/18 08:00 Pulse Ox 97 06/12/18 08:06 Intake & Output 06/11/18 06/12/18 06/12/18 18:59 06:59 18:59 Intake Total 366.9 200 Output Total 955 205 Balance -588.1 -5 Weight 81.4 kg 81.4 kg Intake: IV 366.9 200 Amiodarone 450 mg In 200.9 Dextrose 5% in Water 250 ml @ 1 MG/MIN 34.53 mls/ hr IV .Q7H31M PRN Rx#: [id number] Lactated Ringers 1,000 ml 130 200 @ 20 mls/hr IV .Q24H DORY Rx#:[id number] pressure bags 36 Output: Chest Tube Drainage 380 30 Left Pleural Chest Tube 380 30 Urine 575 175 Other: Voiding Method Indwelling Catheter Urinal Urinal ABP, PAP, CO, CI - Last Documented Arterial Blood Pressure 119/50 Pulmonary Artery Pressure 35/13 Cardiac Output 5.8 Cardiac Index 3.0 - Exam GENERAL EXAM: Alert, pleasant 78-year-old white male, comfortable in no apparent distress. HEAD: Normocephalic/atraumatic. EYES: Normal reaction of pupils, equal size. Conjunctiva pink, sclera white. NOSE: Clear with pink turbinates. THROAT: No erythema or exudates. NECK: No masses, no JVD, no thyroid enlargement, no adenopathy. CHEST: No chest wall deformity. Symmetrical expansion. Sternal incision is clean dry and intact, approximated, sternum stable, there has been interval removal of the mediastinal chest tube, left pleural chest tube remains in place with small amount of serosanguineous drainage LUNGS: Equal air entry with few crackles crackles the left posterior base, wheeze, rhonchi or dullness. CVS: Regular rate and rhythm, normal S1 and S2, no gallops, no murmurs, no rubs ABDOMEN: Soft, nontender. No hepatosplenomegaly, normal bowel sounds, no guarding or rigidity. EXTREMITIES: No clubbing, no edema, no cyanosis, 2+ pulses and upper and lower extremities. MUSCULOSKELETAL: Muscle strength and tone normal. SPINE: No scoliosis or deformity SKIN: No rashes CENTRAL NERVOUS SYSTEM: Alert and oriented -3. No focal deficits, tone is normal in all 4 extremities. PSYCHIATRIC: Alert and oriented -3. Appropriate affect. Intact judgment and insight. - Labs CBC & Chem 7: 06/12/18 04:36 06/12/18 04:36 Labs: Abnormal Lab Results - Last 24 Hours (Table) 06/11/18 06/11/18 06/11/18 Range/Units 11:59 17:12 21:21 RBC (4.30-5.90) m/uL Hgb (13.0-17.5) gm/dL Hct (39.0-53.0) % Plt Count (150-450) k/uL Lymphocytes # (1.0-4.8) k/uL Sodium (137-145) mmol/L BUN (9-20) mg/dL Creatinine (0.66-1.25) mg/dL Glucose (74-99) mg/dL POC Glucose (mg/dL) 156 H 127 H 136 H (75-99) mg/dL Total Protein (6.3-8.2) g/dL Albumin (3.5-5.0) g/dL 06/12/18 06/12/18 06/12/18 Range/Units 04:36 04:36 07:01 RBC 2.95 L (4.30-5.90) m/uL Hgb 9.3 L (13.0-17.5) gm/dL Hct 28.1 L (39.0-53.0) % Plt Count 146 L (150-450) k/uL Lymphocytes # 0.9 L (1.0-4.8) k/uL Sodium 136 L (137-145) mmol/L BUN 35 H (9-20) mg/dL Creatinine 1.57 H (0.66-1.25) mg/dL Glucose 100 H (74-99) mg/dL POC Glucose (mg/dL) 154 H (75-99) mg/dL Total Protein 5.5 L (6.3-8.2) g/dL Albumin 3.3 L (3.5-5.0) g/dL Assessment and Plan Assessment: Impression: Coronary artery disease, status post three-vessel bypass grafting, with JOLLY to LAD, SVG to PDA, and SVG to diagonal. Routine postoperative ventilator management, Atrial fibrillation, an expected outcome of bypass surgery, currently on amiodarone drip at 1 mg per hour. Rate is controlled History of CAD History of DJD History of hypertension History of hyperlipidemia History of vitamin D deficiency Plan: The patient was seen and evaluated by Dr. Hope. Chest x-ray and labs reviewed. He is stable from the pulmonary and critical care standpoint. He continues to work well with the incentive spirometer. He is waiting for bed in the selective care unit. We will increase his activity as tolerated. We'll continue to follow. I, the cosigning physician, performed a history & physical examination of the patient. Lungs sounds with few scattered crackles more so on the left lung base. Maintaining good O2 saturations in the 90s on room air. I discussed the assessment and plan of care with my nurse practitioner, Ni Romero. I attest to the above note as dictated by her.
[2018-06-12] MEDS ORDERED: VITAMIN E (DL,TOCOPHERYL ACET) 400 UNIT CAP PO SCH (12:00)
[2018-06-12] MEDS ORDERED: CHOLECALCIFEROL 1,000 UNIT TAB PO SCH (12:00)
[2018-06-12] MEDS ORDERED: MULTIVITAMINS, THERA 1 EACH TAB PO SCH (12:00)
[2018-06-12] MEDS ORDERED: FOLIC ACID 1 MG TAB PO SCH (12:00)
--- NOTE | 2018-06-12 14:39 | P.PN ---
Subjective Progress Note Date: 06/12/18 Principal diagnosis: chest pain Patient is an 78-year-old male past medical history of hypertension, dyslipidemia, arthritis, and GERD who presented for elective bypass surgery. On 06/09 he underwent a triple vessel bypass with JOLLY to the LAD, SVG to diagonal, SVG to OM1. He tolerated the procedure well. He is slightly hypothermic and returned to the ICU. He was extubated within 3 hours of returning from the OR. He has been progressing well. Patient seen and examined at bedside. No pain, no shortness of breath, no nausea, no vomiting, still no bowel movement Objective - Vital Signs Vital signs: Vital Signs Temp 98.6 F 06/12/18 12:00 Pulse 77 06/12/18 12:00 Resp 18 06/12/18 12:00 BP 140/78 06/12/18 12:00 Pulse Ox 95 06/12/18 12:00 Intake & Output 06/11/18 06/12/18 06/12/18 18:59 06:59 18:59 Intake Total 366.9 200 Output Total 955 205 325 Balance -588.1 -5 -325 Weight 81.4 kg 81.4 kg Intake: IV 366.9 200 Amiodarone 450 mg In 200.9 Dextrose 5% in Water 250 ml @ 1 MG/MIN 34.53 mls/ hr IV .Q7H31M PRN Rx#: [id number] Lactated Ringers 1,000 ml 130 200 @ 20 mls/hr IV .Q24H DORY Rx#:[id number] pressure bags 36 Output: Chest Tube Drainage 380 30 Left Pleural Chest Tube 380 30 Urine 575 175 325 Other: Voiding Method Indwelling Catheter Urinal Urinal ABP, PAP, CO, CI - Last Documented Arterial Blood Pressure 119/50 Pulmonary Artery Pressure 35/13 Cardiac Output 5.8 Cardiac Index 3.0 - Exam General: non toxic,no distress, appears at stated age Derm: warm, dry Head: atraumatic, normocephalic, symmetric Eyes: EOMI, no lid lag, anicteric sclera Mouth: no lip lesion, mucus membranes moist Cardiovascular: S1S2 reg, no murmur, positive posterior tibial pulse bilateral Lungs: clear to ascultation bilateral, no rhonchi, no rales , no accessory muscle use Abdominal: soft, nontender to palpation, no guarding, no appreciable organomegaly Ext: no gross muscle atrophy, no edema, no contractures Neuro: CN II-XI grossly intact, no focal neuro deficits Psych: Alert, oriented, appropriate affect - Labs CBC & Chem 7: 06/12/18 04:36 06/12/18 04:36 Labs: Abnormal Lab Results - Last 24 Hours (Table) 06/11/18 06/11/18 06/12/18 Range/Units 17:12 21:21 04:36 RBC 2.95 L (4.30-5.90) m/uL Hgb 9.3 L (13.0-17.5) gm/dL Hct 28.1 L (39.0-53.0) % Plt Count 146 L (150-450) k/uL Lymphocytes # 0.9 L (1.0-4.8) k/uL Sodium (137-145) mmol/L BUN (9-20) mg/dL Creatinine (0.66-1.25) mg/dL Glucose (74-99) mg/dL POC Glucose (mg/dL) 127 H 136 H (75-99) mg/dL Total Protein (6.3-8.2) g/dL Albumin (3.5-5.0) g/dL 06/12/18 06/12/18 Range/Units 04:36 07:01 RBC (4.30-5.90) m/uL Hgb (13.0-17.5) gm/dL Hct (39.0-53.0) % Plt Count (150-450) k/uL Lymphocytes # (1.0-4.8) k/uL Sodium 136 L (137-145) mmol/L BUN 35 H (9-20) mg/dL Creatinine 1.57 H (0.66-1.25) mg/dL Glucose 100 H (74-99) mg/dL POC Glucose (mg/dL) 154 H (75-99) mg/dL Total Protein 5.5 L (6.3-8.2) g/dL Albumin 3.3 L (3.5-5.0) g/dL Assessment and Plan Assessment: Coronary artery status post 3 vessel bypass -Management as per primary team -Aspirin, Lipitor, Plavix, Lopressor CKD stage III - appears baseline is 1.3 - stop toradol - repeat BMP in AM and then with home health after discharge. Anticipated and expected postoperative acute blood loss anemia and thrombocytopenia, stable -Repeat CBC in a.m. -Transfuse as indicated, no current indication for transfusion Hypertension, controlled -Metoprolol resumed -Continue off of hydralazine and Cozaar, and Cardizem -Follow blood pressures A fib - controlled - amio - tele Dyslipidemia - lipitor GERD - PPI Osteoarthritis -Pain control DVT prophylaxis: Heparin SC Discussed with: Nursing, family, Madison Zapata NP A total of 25 minutes was spent on the care of this complex patient more than 50 % of the time was spent in counseling and care coordination.
[2018-06-12 17:18] LABS: Glucose,Whole Blood 124 mg/dL (75-99)
[2018-06-12] MEDS: SENNOSIDES-DOCUSATE SODIUM 1 EACH TAB PO SCH (21:16)
[2018-06-13 05:34] LABS: Basophils % (A) 0 %; Eosinophils # (A) 0.6 k/uL (0-0.7); Eosinophils % (A) 11 %; HCT 28.6 % (39.0-53.0); HGB 9.3 gm/dL (13.0-17.5); Lymphocytes # (A) 0.7 k/uL (1.0-4.8); Lymphocytes % (A) 13 %; MCHC 32.7 g/dL (31.0-37.0); MCV 94.9 fL (80.0-100.0); Mean Platelet Volume 7.9; Monocytes # (A) 0.4 k/uL (0-1.0); Monocytes % (A) 8 %; Neutrophils # (A) 3.6 k/uL (1.3-7.7); Neutrophils % (A) 66 %; Platelet Count 211 k/uL (150-450); RBC 3.01 m/uL (4.30-5.90); RDW 13.4 % (11.5-15.5); WBC 5.5 k/uL (3.8-10.6)
[2018-06-13 05:46] LABS: Albumin 3.1 g/dL (3.5-5.0); Calcium 8.8 mg/dL (8.4-10.2); Magnesium 2.5 mg/dL (1.6-2.3); Potassium 4.6 mmol/L (3.5-5.1); Total Bilirubin 0.6 mg/dL (0.2-1.3); Total Protein 5.5 g/dL (6.3-8.2)
[2018-06-13] MEDS: HEPARIN SODIUM,PORCINE 5,000 UNIT/ML 1 ML VIAL SQ SCH (06:38)
--- NOTE | 2018-06-13 07:09 | XR ---
EXAMINATION TYPE: XR chest 2V DATE OF EXAM: 06/13/2018 HISTORY: post cardiac surgery. REFERENCE: Previous study dated 06/12/2018. FINDINGS: There has been a midline sternotomy. The heart is mildly enlarged. Lungs are clear. There a re small, bilateral effusions. IMPRESSION: 1. MILD CARDIOMEGALY. 2. SMALL, BILATERAL EFFUSIONS.
[2018-06-13] MEDS: IPRATROPIUM-ALBUTEROL 3 ML NEB INHALATION SCH ×2 (07:25→11:18)
[2018-06-13] MEDS: INSULIN ASPART 100 UNIT/ML 1 ML 10 ML VIAL SQ SCH ×2 (07:30→11:36)
[2018-06-13] MEDS: ASPIRIN 325 MG TAB PO SCH (08:44)
[2018-06-13] MEDS: CLOPIDOGREL 75 MG TAB PO SCH (08:45)
[2018-06-13] MEDS: AMIODARONE 200 MG TAB PO SCH (08:45)
[2018-06-13] MEDS: ATORVASTATIN 40 MG TAB PO SCH (08:45)
[2018-06-13] MEDS: METOPROLOL TARTRATE 12.5 MG TAB PO SCH (08:46)
[2018-06-13] MEDS: PANTOPRAZOLE 40 MG TABLET PO SCH (08:46)
--- NOTE | 2018-06-13 08:54 | P.PN ---
Subjective Progress Note Date: 06/13/18 Principal diagnosis: Coronary artery disease. previous medical history of hypertension, hyperlipidemia, arthritis, and family history of coronary artery disease. POD #4 off-pump coronary artery bypass grafting 3 with the left internal mammary artery to the left anterior descending artery and reverse saphenous vein graft to the first obtuse marginal and diagonal branches with endovascular vein harvest of the left thigh and intraoperative transesophageal echocardiogram by anesthesia. Postoperative paroxysmal atrial fibrillation, an unexpected but potential outcome of surgery. Patient is currently sitting up in a recliner in no acute distress. Denies pain , shortness of breath. No new complaints. Patient has been ambulating multiple laps around the hallway without difficulty on room air. Objective - Vital Signs Vital signs: Vital Signs Temp 99 F 06/13/18 08:00 Pulse 64 06/13/18 08:00 Resp 19 06/13/18 08:00 BP 134/72 06/13/18 08:00 Pulse Ox 97 06/13/18 08:00 Intake & Output 06/12/18 06/13/18 06/13/18 18:59 06:59 18:59 Output Total 325 500 Balance -325 -500 Output: Urine 325 500 Other: Voiding Method Urinal Urinal # Voids 1 # Bowel Movements 1 ABP, PAP, CO, CI - Last Documented Arterial Blood Pressure 119/50 Pulmonary Artery Pressure 35/13 Cardiac Output 5.8 Cardiac Index 3.0 - Constitutional General appearance: Present: cooperative, no acute distress - Respiratory Details: Lungs sounds diminished bilaterally. Respirations even, nonlabored. Currently on room air with oxygen saturations 97%. Able to achieve 1500 mL on his incentive spirometry. Effective cough. - Cardiovascular Details: S1, S2 present, positive rub. Regular rate and rhythm, sinus rhythm on telemetry. Sternum stable. A/V epicardial pacemaker wires present, grounded. Palpable peripheral pulses bilaterally. No edema present. No calf pain or tenderness noted. Heart hugger in place with patient demonstrating appropriate use. Antiembolism stockings, SCDs present. - Gastrointestinal Gastrointestinal Comment(s): Abdomen soft, nontender, nondistended. Active bowel sounds present 4 quadrants. Tolerating diet. Positive bowel movement 06/12. - Genitourinary Genitourinary Comment(s): Continues to void clear, yellow urine - Integumentary Integumentary Comment(s): Skin is warm and dry with evidence of good perfusion. Anterior chest incision well approximated covered with dry intact dressing. Left lower extremity EVH site well approximated. - Neurologic Neurologic: Present: CNII-XII intact - Musculoskeletal Musculoskeletal: Present: gait normal, strength equal bilaterally - Psychiatric Psychiatric: Present: A&O x's 3, appropriate affect, intact judgment & insight - Allied health notes Allied health notes reviewed: nursing - Labs CBC & Chem 7: 06/13/18 04:29 06/13/18 04:29 Labs: Abnormal Lab Results - Last 24 Hours (Table) 06/12/18 06/13/18 06/13/18 Range/Units 17:06 04:29 04:29 RBC 3.01 L (4.30-5.90) m/uL Hgb 9.3 L (13.0-17.5) gm/dL Hct 28.6 L (39.0-53.0) % Lymphocytes # 0.7 L (1.0-4.8) k/uL Chloride 108 H (98-107) mmol/L BUN 31 H (9-20) mg/dL Creatinine 1.34 H (0.66-1.25) mg/dL Glucose 101 H (74-99) mg/dL POC Glucose (mg/dL) 124 H (75-99) mg/dL Magnesium 2.5 H (1.6-2.3) mg/dL ALT 19 L (21-72) U/L Total Protein 5.5 L (6.3-8.2) g/dL Albumin 3.1 L (3.5-5.0) g/dL - Imaging and Cardiology Chest x-ray: report reviewed, image reviewed Assessment and Plan (1) Hypertension Current Visit: Yes Status: Chronic Code(s): I10 - ESSENTIAL (PRIMARY) HYPERTENSION SNOMED Code(s): 16678796 (2) Hyperlipidemia Current Visit: Yes Status: Chronic Code(s): E78.5 - HYPERLIPIDEMIA, UNSPECIFIED SNOMED Code(s): 90647052 (3) Osteoarthritis Current Visit: Yes Status: Chronic Code(s): M19.90 - UNSPECIFIED OSTEOARTHRITIS, UNSPECIFIED SITE SNOMED Code(s): 920205554 (4) Family history of heart disease Current Visit: Yes Status: Chronic Code(s): Z82.49 - FAMILY HX OF ISCHEM HEART DIS AND OTH DIS OF THE CIRC SYS SNOMED Code(s): 573269674 (5) CAD (coronary artery disease) Current Visit: Yes Status: Chronic Code(s): I25.10 - ATHSCL HEART DISEASE OF [place] CORONARY ARTERY W/O ANG PCTRS SNOMED Code(s): 54468390 Plan: 1. Continue aspirin, statin, Plavix, beta blane. 2. Continue amiodarone for A. fib prophylaxis. No anticoagulation unless in A. fib greater than 24 hours. 3. Encourage incentive spirometry 10 times every hour while awake. 4. Increase activity, ambulate in hallway. PT/OT/cardiac rehab following. 5. Insulin management per primary care service. 6. Bronchodilators per pulmonology. 7. Will monitor daily labs, chest x-rays. Electrolyte replacement per protocol. Avoid nephrotoxins. 8. Pain control with current medication regimen. 9. Will discontinue epicardial pacemaker wires. 10. Protonix for GI prophylaxis, subcu heparin, SCDs for DVT prophylaxis. 11. Discharge planning in progress. Anticipate discharge to home with home care this afternoon. 12. More recommendations to follow. Time with Patient: Greater than 30
[2018-06-13 10:28] VITALS: BP 133/77; PULSE 63; RESP 18; TEMP 98.3
--- NOTE | 2018-06-13 11:35 | PN ---
PROGRESS NOTE This patient is status post coronary artery bypass surgery. Patient has remained stable. Patient had an episode of paroxysmal atrial fibrillation. He was given a day IV amiodarone. The atrial fibrillation lasted only for a long time. He is currently being maintained in the normal sinus rhythm. The patient is sitting up in a recliner without any acute distress. Blood pressure is 149/78 mmHg. Patient is afebrile. Heart rate is 77 per minute. First and second heart sounds are heard. Lungs are clinically clear. There is no evidence of any significant leg edema. The patient's creatinine is 1.57. We will recommend to continue the patient on the current medications. The patient is currently getting amiodarone 400 mg b.i.d. If patient has any recurrent episodes of atrial fibrillation, may consider adding anticoagulation. Also consider adding RADHA inhibitor prior to the discharge. CAROLEL / ANUSHAN: [id number] /
--- NOTE | 2018-06-13 13:10 | P.PN ---
Subjective Progress Note Date: 06/13/18 Principal diagnosis: Status post bypass grafting Progress note dated 06/13/2018 This is an 78-year-old male with a history of a three-vessel bypass grafting. The patient is doing very well and will likely be discharged home later today. The patient also has a history of atrial fibrillation COPD DJD hypertension hyperlipidemia and vitamin D deficiency. This morning, he was not requiring any supplemental oxygen or IVs. He really did well right out of the gait. He has no major complaints today. The patient is doing excellent on his incentive spirometry. His chest x-rays have come around nicely. Labs are reviewed and everything seemed to be in order. Objective - Vital Signs Vital signs: Vital Signs Temp 98.3 F 06/13/18 10:27 Pulse 63 06/13/18 10:27 Resp 18 06/13/18 10:27 BP 133/77 06/13/18 10:27 Pulse Ox 95 06/13/18 10:27 Intake & Output 06/12/18 06/13/18 06/13/18 18:59 06:59 18:59 Output Total 325 500 0 Balance -325 -500 0 Output: Urine 325 500 0 Other: Voiding Method Urinal Urinal Urinal # Voids 1 # Bowel Movements 1 ABP, PAP, CO, CI - Last Documented Arterial Blood Pressure 119/50 Pulmonary Artery Pressure 35/13 Cardiac Output 5.8 Cardiac Index 3.0 - Exam No acute distress, oriented 3. HEENT examination is grossly unremarkable. Mucous membranes are moist. No oral lesions. Neck supple. Full range of motion. No adenopathy thyromegaly or neck vein distention. Cardiovascular examination reveals regular rhythm rate. S1-S2 normal. No S3 or S4. No discernible murmur noted. Heart rate is 80 bpm. Lungs reveal clear breath sounds. Breath sounds are equal bilaterally. No adventitious lung sounds including wheezes rhonchi or crackles. Abdomen soft bowel sounds are heard. No masses or tenderness. Extremities are intact. No cyanosis clubbing or edema. Skin is without rash or lesion. Neurologic examination is brief but nonfocal. - Labs CBC & Chem 7: 06/13/18 04:29 06/13/18 04:29 Labs: Abnormal Lab Results - Last 24 Hours (Table) 06/12/18 06/13/18 06/13/18 Range/Units 17:06 04:29 04:29 RBC 3.01 L (4.30-5.90) m/uL Hgb 9.3 L (13.0-17.5) gm/dL Hct 28.6 L (39.0-53.0) % Lymphocytes # 0.7 L (1.0-4.8) k/uL Chloride 108 H (98-107) mmol/L BUN 31 H (9-20) mg/dL Creatinine 1.34 H (0.66-1.25) mg/dL Glucose 101 H (74-99) mg/dL POC Glucose (mg/dL) 124 H (75-99) mg/dL Magnesium 2.5 H (1.6-2.3) mg/dL ALT 19 L (21-72) U/L Total Protein 5.5 L (6.3-8.2) g/dL Albumin 3.1 L (3.5-5.0) g/dL Assessment and Plan Assessment: Assessment Postop day # 4, status post three-vessel bypass grafting, with JOLLY to LAD, SVG to PDA, and SVG to diagonal. Routine postoperative ventilator management History of CAD History of DJD History of hypertension History of hyperlipidemia History of vitamin D deficiency Plan: Plan dated 06/09/2018 The patient's FiO2 was dropped down from 100% down to 50%. We added duo nebs every 4 [id number]. The patient's chest x-ray will be evaluated once it is ready. Hopefully, we can proceed to rapid extubation protocol. The patient appears to be relatively stable and healthy for an 78-year-old male. He's currently on lactated Ringer's at 50 mL an hour, propofol at 15 mcg/kg/m, Cleveprex is 6 mg per hour and nitroglycerin at 5 mcg/m. We will continue to follow. No additional recommendations are made. Prognosis is thought to be generally good. Critical care time 33 minutes Plan dated 06/13/2018 The patient's doing well. He will likely be discharged discharged home today. He is not requiring any supplemental oxygen. He's not receiving any IV fluids. He's done very well with his incentive spirometer. We'll encourage him to continue to use it. We also recommend deep breathing coughing and clearing of secretions. Prognosis is good. We'll continue to see as needed. Time with Patient: Less than 30
--- NOTE | 2018-06-13 13:23 | P.PN ---
Subjective Progress Note Date: 06/13/18 (Delayed charting patient seen at 0830) Principal diagnosis: chest pain Patient is an 78-year-old male past medical history of hypertension, dyslipidemia, arthritis, and GERD who presented for elective bypass surgery. On 06/09 he underwent a triple vessel bypass with JOLLY to the LAD, SVG to diagonal, SVG to OM1. He tolerated the procedure well. He is slightly hypothermic and returned to the ICU. He was extubated within 3 hours of returning from the OR. He has been progressing well. Patient seen and examined at bedside. Feeling well, bad a BM yesterday, No shortness of breath. Chest pain free. Objective - Vital Signs Vital signs: Vital Signs Temp 98.3 F 06/13/18 10:27 Pulse 63 06/13/18 10:27 Resp 18 06/13/18 10:27 BP 133/77 06/13/18 10:27 Pulse Ox 95 06/13/18 10:27 Intake & Output 06/12/18 06/13/18 06/13/18 18:59 06:59 18:59 Output Total 325 500 0 Balance -325 -500 0 Output: Urine 325 500 0 Other: Voiding Method Urinal Urinal Urinal # Voids 1 # Bowel Movements 1 ABP, PAP, CO, CI - Last Documented Arterial Blood Pressure 119/50 Pulmonary Artery Pressure 35/13 Cardiac Output 5.8 Cardiac Index 3.0 - Exam General: non toxic,no distress, appears at stated age Derm: warm, dry Head: atraumatic, normocephalic, symmetric Eyes: EOMI, no lid lag, anicteric sclera Mouth: no lip lesion, mucus membranes moist Cardiovascular: S1S2 reg, no murmur, positive posterior tibial pulse bilateral Lungs: clear to ascultation bilateral, no rhonchi, no rales , no accessory muscle use Abdominal: soft, nontender to palpation, no guarding, no appreciable organomegaly Ext: no gross muscle atrophy, no edema, no contractures Neuro: CN II-XI grossly intact, no focal neuro deficits Psych: Alert, oriented, appropriate affect - Labs CBC & Chem 7: 06/13/18 04:29 06/13/18 04:29 Labs: Abnormal Lab Results - Last 24 Hours (Table) 06/12/18 06/13/18 06/13/18 Range/Units 17:06 04:29 04:29 RBC 3.01 L (4.30-5.90) m/uL Hgb 9.3 L (13.0-17.5) gm/dL Hct 28.6 L (39.0-53.0) % Lymphocytes # 0.7 L (1.0-4.8) k/uL Chloride 108 H (98-107) mmol/L BUN 31 H (9-20) mg/dL Creatinine 1.34 H (0.66-1.25) mg/dL Glucose 101 H (74-99) mg/dL POC Glucose (mg/dL) 124 H (75-99) mg/dL Magnesium 2.5 H (1.6-2.3) mg/dL ALT 19 L (21-72) U/L Total Protein 5.5 L (6.3-8.2) g/dL Albumin 3.1 L (3.5-5.0) g/dL Assessment and Plan Assessment: Coronary artery status post 3 vessel bypass -Management as per primary team -Aspirin, Lipitor, Plavix, Lopressor CKD stage III - at baseline of 1.3 - BMP with home health after discharge. Anticipated and expected postoperative acute blood loss anemia- stable -out patient repeat CBC Hypertension, controlled -Metoprolol resumed -Continue off of hydralazine and Cozaar, and Cardizem -Follow blood pressures A fib - controlled - amio - tele Dyslipidemia - lipitor GERD - PPI Osteoarthritis -Pain control Thrombocytopenia, resolved DVT prophylaxis: Heparin SC Discussed with: Nursing, family, Madison Zapata NP A total of 25 minutes was spent on the care of this complex patient more than 50 % of the time was spent in counseling and care coordination.
--- NOTE | 2018-06-14 16:03 | P.DS ---
Providers Date of admission: 06/09/18 05:41 Expected date of discharge: 06/13/18 Attending physician: Blas Griffin Consults: 06/09/18 11:49 Consult Physician Routine Consulting Provider: Ab Hope Consult Reason/Comments: Medical Record Coder Consult: post cardiac surgery Do you want consulting provider notified?: Yes Consult Physician Routine Consulting Provider: Britni Ta Consult Reason/Comments: medical management Do you want consulting provider notified?: Yes Consult Physician Routine Consulting Provider: Houston Cohen Consult Reason/Comments: Leather Piece Inspector Consult: post cardiac surgery Do you want consulting provider notified?: Yes Primary care physician: Meng Jasso - Discharge Diagnosis(es) (1) Hypertension Status: Chronic (2) Hyperlipidemia Status: Chronic (3) Osteoarthritis Status: Chronic (4) Family history of heart disease Status: Chronic (5) CAD (coronary artery disease) Status: Chronic Hospital Course: FINAL DIAGNOSIS: 1. Coronary artery disease 2. Hypertension 3. Hyperlipidemia 4. Arthritis 5. Family history of coronary artery disease 6. Postoperative paroxysmal atrial fibrillation PRINCIPAL PROCEDURE: 1. Off pump coronary artery bypass x 3 with the left internal mammary artery to the left anterior descending artery and reverse saphenous vein graft to the first obtuse marginal and diagonal branches 2. Endovascular vein harvest of the left thigh 3. Intraoperative transesophageal echocardiogram by anesthesia HISTORY OF PRESENT ILLNESS: This is a very active 78 year old gentleman who follows with Dr. Jasso on an outpatient basis. He was being evaluated by an orthopedic surgeon for arthritis in his left knee and was noted to have problems maintaining his blood pressure. He was recommended to see a forest fire warden. He saw Dr. Cohen, underwent stress test which was abnormal, and subsequently underwent left heart catheterization. The catheterization revealed 80-90% blockage in the proximal LAD, 80% blockage in the LAD just after takeoff of the major diagonal branch, 50% stenosis in the takeoff of the diagnonal branch and 95% stenosis in the proximal PDA. Echocardiogram was completed demonstrating normal left ventricular function, and no significant valvular disease. The patient was referred to Dr. Griffin from cardiothoracic surgery. He was recommended to undergo coronary artery bypass grafting. The usual perioperative course was described in detail to the patient and his family. All risks and benefits were explained, all questions were answered, and consent was obtained to proceed with surgery. HOSPITAL COURSE: The patient was brought to the hospital on 06/09/18, taken to the preoperative area, prepared in the usual fashion, and subsequently taken to the operating room where Dr. Griffin performed off pump coronary artery bypass x 3 with the left internal mammary artery to the left anterior descending artery and reverse saphenous vein graft to the first obtuse marginal and diagonal branches, endovascular vein harvest of the left thigh, and intraoperative transesophageal echocardiogram by anesthesia. Upon completion of surgery the patient was transferred to the cardiovascular intensive care unit where he was recovered, monitored hemodynamically, and where he progressed to cardiac rehabilitation phase 1. He was extubated, all lines, tubes, and drips were discontinued when appropriate, and orders were placed to transfer to 3S. Cardiac Stepdown for further monitoring and rehabilitation, however there were no beds available and the patient remained in the ICU as a 3S overflow patient. He did experience postoperative paroxysmal atrial fibrillation with conversion to normal sinus rhythm after administration of amiodarone. His oxygen was titrated down, he continued to work with physical and occupational therapy, he was tolerating oral diet, his pain was controlled, and he was ready to be discharged to home with [facility] care on postoperative day #4. He received written and verbal instruction regarding his medications, activity restrictions, signs and symptoms requiring physician notification, and follow- up appointments. COMPLICATIONS: The patient experienced postoperative atrial fibrillation which was treated accordingly. Patient Condition at Discharge: Stable Plan - Discharge Summary Discharge Rx Participant: Yes New Discharge Prescriptions: New Acetaminophen Tab [Tylenol] 650 mg PO Q4HR PRN tab PRN Reason: Fever and/ or Mild to Mod Pain Acetaminophen Tab [Tylenol] 325 mg PO Q4HR PRN tab PRN Reason: Fever and/ or Mild Pain Amiodarone [Cordarone] 400 mg PO BID #40 tab Clopidogrel [Plavix] 75 mg PO DAILY #30 tab Metoprolol Tartrate [Lopressor] 25 mg PO BID #60 tab Pantoprazole [Protonix] 40 mg PO AC-BRKFST #30 tablet. Sennosides-Docusate Sodium [Senokot-S] 2 each PO HS PRN tab PRN Reason: Constipation Continue Iron 100 mg PO DAILY Folic Acid 0.4 mg PO DAILY Cholecalciferol [Vitamin D3] 5,000 unit PO DAILY Vitamin E (Dl,Tocopheryl Acet) [Vitamin E] 400 unit PO DAILY Calcium Carbonate [Calcium] 600 mg PO DAILY Alpha Lipoic Acid 100 mg PO DAILY Multivitamins, Thera [Multivitamin (formulary)] 1 tab PO DAILY Ascorbic Acid [Vitamin C] 500 mg PO DAILY Zinc 50 mg PO DAILY Thomson-3/Dha/Epa/Fish Oil [Fish Oil 500 mg Softgel] 1 cap PO DAILY Ubidecarenone [Co Q-10] 100 mg PO DAILY Ginkgo Biloba [place] Extract [Ginkgo Biloba] 60 mg PO DAILY Aspirin 325 mg PO DAILY #30 tab Changed Atorvastatin [Lipitor] 40 mg PO HS #30 tab Discontinued hydrALAZINE HCL [Apresoline] 10 mg PO TID Losartan Potassium [Cozaar] 100 mg PO DAILY Diltiazem Cd [Cardizem Cd] 240 mg PO DAILY Omeprazole 20 mg PO DAILY PRN PRN Reason: Heartburn Discharge Medication List Alpha Lipoic Acid 100 mg PO DAILY 05/24/18 [History] Ascorbic Acid [Vitamin C] 500 mg PO DAILY 05/24/18 [History] Calcium Carbonate [Calcium] 600 mg PO DAILY 05/24/18 [History] Cholecalciferol [Vitamin D3] 5,000 unit PO DAILY 05/24/18 [History] Folic Acid 0.4 mg PO DAILY 05/24/18 [History] Ginkgo Biloba [place] Extract [Ginkgo Biloba] 60 mg PO DAILY 05/24/18 [History] Iron 100 mg PO DAILY 05/24/18 [History] Multivitamins, Thera [Multivitamin (formulary)] 1 tab PO DAILY 05/24/18 [History ] Thomson-3/Dha/Epa/Fish Oil [Fish Oil 500 mg Softgel] 1 cap PO DAILY 05/24/18 [ History] Ubidecarenone [Co Q-10] 100 mg PO DAILY 05/24/18 [History] Vitamin E (Dl,Tocopheryl Acet) [Vitamin E] 400 unit PO DAILY 05/24/18 [History] Zinc 50 mg PO DAILY 05/24/18 [History] Acetaminophen Tab [Tylenol] 325 mg PO Q4HR PRN tab 06/13/18 [Rx] Acetaminophen Tab [Tylenol] 650 mg PO Q4HR PRN tab 06/13/18 [Rx] Amiodarone [Cordarone] 400 mg PO BID #40 tab 06/13/18 [Rx] Aspirin 325 mg PO DAILY #30 tab 06/13/18 [Rx] Atorvastatin [Lipitor] 40 mg PO HS #30 tab 06/13/18 [Rx] Clopidogrel [Plavix] 75 mg PO DAILY #30 tab 06/13/18 [Rx] Metoprolol Tartrate [Lopressor] 25 mg PO BID #60 tab 06/13/18 [Rx] Pantoprazole [Protonix] 40 mg PO AC-BRKFST #30 tablet. 06/13/18 [Rx] Sennosides-Docusate Sodium [Senokot-S] 2 each PO HS PRN tab 06/13/18 [Rx] Follow up Appointment(s)/Referral(s): Houston Cohen MD [STAFF PHYSICIAN] - 06/22/18 2:15 pm Blas Griffin MD [STAFF PHYSICIAN] - 07/08/18 1:00 pm Ab Hope DO [Doctor of Osteopathic Medicine] - 2 Weeks [facility], [NON-STAFF] - 1 Week Meng Jasso MD [Primary Care Provider] - 06/21/18 3:15 pm Ambulatory/Diagnostic Orders: Complete Blood Count w/diff [LAB.AMB] Time Frame: 3 Days, Location: None Selected Comprehensive Metabolic Panel [LAB.AMB] Time Frame: 3 Days, Location: None Selected Patient Instructions/Handouts: Coronary Artery Bypass Graft (DC) Activity/Diet/Wound Care/Special Instructions: DISCHARGE INSTRUCTIONS: 1. No driving for 4 weeks, or until physician gives their ok. 2. The patient should sleep in their own bed, no medical bed needed. 3. Stairs are not an issue. If the bedroom is upstairs, it is advised that the patient go up at night and down in the morning for the first week. Go slowly, using handrail and take 1 step at a time. 4. URMILA hose are to be worn for 30 days or until physician discontinues. 5. Heart hugger is to be worn 100% of the time until physician discontinues.( except when showering) 6. No lifting, pushing, or pulling more than 10 pounds for 12 weeks. The physician will advise of any restriction changes. 7. The patient is expected to continue the prescribed walking program. 8. Continue pain control per as needed orders. 9. Continue with incentive spirometry and splinting/heart hugger until otherwise directed by the physician. 10. Must shower daily using liquid antibacterial soap and a separate white washcloth for each individual incision. 11. Routine sternal incision care. No powders, lotions, ointments on incisions. 12. Please call surgeon/LATIN DANCER for temp greater than 101 F or purulent drainage from incisions. 13. All prescriptions given by surgeon for 30 days. Refills need to be filled through forest fire warden/primary care physician. 14. A Red armband has been placed on the patient. It should be worn for 30 days post surgery and will be removed by the cardiac surgeons. If an ER visit is necessary, please make sure the number on the Red armband is called. HOME HEALTH SERVICES TO PROVIDE: RN SKILLED HOME CARE SERVICES FOR POST-OP SURGICAL PATIENTS WITH THE FOLLOWING: Coronary Artery Bypass Surgery (CABG), Mitral Valve Replacement/ Repair ( MVR), Aortic Valve Replacement/Repair (AVR) RN TO CONTINUE EDUCATION FROM ``ROAD TO A HEALTH HEART PATIENT EDUCATION MANUAL (GIVEN TO PATIENT IN THE HOSPITAL) MEDICATION RECONCILIATION WITH EDUCATION NEEDED ON FIRST HOME VISIT EMPHASIZE IMPORTANCE OF WEARING BREAST SUPPORT/HEART HUGGER ENCOURAGE USE OF INCENTIVE SPIROMETER 10 X EVERY HOUR WHILE AWAKE ENCOURAGE UTILIZATION OF LOWER EXTREMITY COMPRESSION STOCKINGS/URMILA HOSE and ELEVATE LEGS ABOVE LEVEL OF HEART WHILE AT REST. ENCOURAGE AMBULATION 3-5x/day INCREASING TOLERATES, WHILE AVOID EXTREMES IN TEMPERATURE FREQUENCY: RN TO OPEN THE PATIENT WITHIN 24 HOURS OF DISCHARGE FROM THE HOSPITAL WITH TELEHEALTH INSTALLED AT [facility] [place], [place] TO VISIT 2-3 X A WEEK FOR 4 WEEKS ESTABLISHED BY PATIENT NEEDS. LABORATORY: CBC, CMP TO BE DRAWN ON THE THIRD DAY HOME, 06/16/2018, (RAN STAT) FAX RESULTS TO [phone]. TELEHEALTH PARAMETERS: WEIGHT: NOTIFY MD OF WEIGHT GAIN OF 2 LBS IN 24 HOURS OR 5 LBS IN ONE WEEK HR: NOTIFY MD OF HR <55 BPM OR HR>100 BPM BP: NOTIFY MD IF BP <90/55 OR BP>140/100 O2 SAT: NOTIFY MD IF PO2<93% ON ROOM AIR SEND TELEHEALTH REPORT TO SURVEYOR HELPER ROD AND CARDIOVASCULAR SURGEON THE FIRST WEEK OF CARE AND THEN BI-WEEKLY. PLEASE ADDITIONALLY COMMUNICATE ANY ABNORMALS AND NEW FINDINGS TO THE SURGEONS OFFICE. Discharge Disposition: HOME WITH HOME HEALTH SERVICES
== END 2018-06-13 13:42 | disposition home health service (06) | DRG 236 ==
LOC: 2ORMAIN 05:41 → 2SICU 12:35 → 3SCARD 06-11 17:57 → 2SICU 06-11 18:33
PROVIDERS: ADMIT Thoracic Surgery (Cardiothoracic Vascular Surgery); ATTEND Thoracic Surgery (Cardiothoracic Vascular Surgery)
PROC: 06BQ4ZZ Excision of Left Saphenous Vein, Percutaneous Endoscopic Approach (ICD-10-PCS; 2018-06-09)
PROC: 021109W Bypass Coronary Artery, Two Arteries from Aorta with Autologous Venous Tissue, Open Approach (ICD-10-PCS; principal; 2018-06-09 08:30)
PROC: 02100Z9 Bypass Coronary Artery, One Artery from Left Internal Mammary, Open Approach (ICD-10-PCS; 2018-06-09 08:30)
DX: I25.10 Atherosclerotic heart disease of native coronary artery without angina pectoris (principal); D62 Acute posthemorrhagic anemia; N17.9 Acute kidney failure, unspecified; I48.0 Paroxysmal atrial fibrillation; I34.0 Nonrheumatic mitral (valve) insufficiency; E78.5 Hyperlipidemia, unspecified; K21.9 Gastro-esophageal reflux disease without esophagitis; R25.1 Tremor, unspecified; E55.9 Vitamin D deficiency, unspecified; M19.90 Unspecified osteoarthritis, unspecified site; M17.12 Unilateral primary osteoarthritis, left knee; I12.9 Hypertensive chronic kidney disease with stage 1 through stage 4 chronic kidney disease, or unspecified chronic kidney disease; N18.3 Chronic kidney disease, stage 3 (moderate); Z96.641 Presence of right artificial hip joint; Z98.49 Cataract extraction status, unspecified eye; Z79.82 Long term (current) use of aspirin; Z79.899 Other long term (current) drug therapy; Z85.46 Personal history of malignant neoplasm of prostate; Z87.891 Personal history of nicotine dependence; Z82.49 Family history of ischemic heart disease and other diseases of the circulatory system
CPT/HCPCS: 71045; 71046; 80053; 82330; 82805; 83036; 83735; 85025; 85520; 85610; 85730; 86850; 86891; 86900; 86901; 86920; 94002; 94640

== ENCOUNTER → 2021-12-10 | Outpatient (CLI) | payer MEDICARE, OTHER | END | disposition home or self-care (01) | LOC: RADXRMAIN 15:22 | DX: Z53.9 Procedure and treatment not carried out, unspecified reason (principal) ==